=== PATIENT | female | born 1965 | race Caucasian/White ===

== ENCOUNTER 2020-02-09 10:16 | Emergency (ER) | payer OTHER ==
--- OUTSIDE RECORDS SUMMARY | 2020-02-09 10:56 | XMS REPORT | Summary of Care ---
:1965 Author Organization [facility] Address [address] [place] [address] Care Team Providers Name Role Phone Pcp, Does Not Have A Primary Care Provider Reason for Visit Reason Comments Refill Request Encounter Details Date Type Department Care Team Description 11/22/2019 Refill [facility] Yeimi posada, BRYCE Liu Refill Request - [address] [facility] [place] [address] [place] [address] [phone] Allergies No Known Allergiesdocumented as of this encounter (statuses as of 11/24/2019) Medications Medication Sig Dispensed Refills Start Date End Date Status azelastine 137 mcg Use 1 [place] in each 30 mL 0 10/29/2019 Active (0.1 %) nasal nostril 2 (two) sprayIndications: times daily. Use in Sore throat, each nostril as Post-nasal drip, directed Cough documented as of this encounter (statuses as of 11/24/2019) Active Problems Problem Noted Date Sore throat 10/30/2019 Post-nasal drip 10/30/2019 Cough 10/30/2019 Obesity (BMI 30-39.9) 04/10/2018 Family history of early CAD 04/09/2018 documented as of this encounter (statuses as of 11/24/2019) Resolved Problems Problem Noted Date Resolved Date Chest pain 04/09/2018 10/30/2019 documented as of this encounter (statuses as of 11/24/2019) Social History Tobacco Use Types Packs/Day Years Used Date Never Smoker Smokeless Tobacco: Never Used Alcohol Use Drinks/Week oz/Week Comments No Sex Assigned at Date Recorded Not on file COVID-19 Exposure Response Date Recorded In the last month, have you been in contact with No / Unsure 10/29/2019 3:05 PM CDT someone who was confirmed or suspected to have Coronavirus / COVID-19? documented as of this encounter Last Filed Vital Signs Not on filedocumented in this encounter Plan of Treatment Health Maintenance Due Date Last Done Comments Depression Screening 1978 DTaP,Tdap,and Td Vaccines (1 - 1985 Tdap) PAP SMEAR 1987 Breast Cancer Screening (MAMMOGRAM) 2006 COLON CANCER SCREENING ANNUAL 2016 FIT/FOBT COLON CANCER SCREENING FIT DNA 2016 EVERY 3 YEARS COLON CANCER SCREENING 2016 SIGMOIDOSCOPY EVERY 5 YEARS COLONOSCOPY 2016 Colorectal Cancer Screening 2016 Zoster Recombinant Vaccine 2016 (SHINGRIX) (1 of 2) INFLUENZA VACCINE (#1) 2019 PNEUMOCOCCAL 0-64 YEARS COMBINED Aged Out No longer eligible based on SERIES patient's age to complete this topic documented as of this encounter Results Not on filedocumented in this encounter Visit Diagnoses Diagnosis Sore throat Acute pharyngitis Post-nasal drip Postnasal drip Cough documented in this encounter Insurance Payer Benefit Plan / Subscriber ID Effective Dates Phone Addre ss Type Group COMMERCIAL COMMERCIAL [id number] 2019-Salvador HM O/PPO/PO NON-CONTRACT NON-CONTRACT t S GENERIC GENERIC documented as of this encounter
--- OUTSIDE RECORDS SUMMARY | 2020-02-09 10:56 | XMS REPORT | Continuity of Care Document ---
:1965 Author Organization [facility] t Address [address] [place] [address] Care Team Providers Name Role Phone Asked, Pcp Primary Care Physician Unavailable Srikanth CRUZ L Attending Clinician Problems This patient has no known problems. Allergies, Adverse Reactions, Alerts This patient has no known allergies or adverse reactions. Social History Social Habit Start Date Stop Date Quantity Comments Source Sex Assigned At [facility] ethodist Tobacco use and 2018-04-13 2018-04-13 Never used [facility]ist exposure 00:00:00 00:00:00 Medications This patient has no known medications. Procedures This patient has no known procedures. Plan of Care Planned Activity Planned Date Details Comments Source Future Scheduled 2019-11-14 INFLUENZA VACCINE [facility] 00:00:00 [code = INFLUENZA VACCINE] Future Scheduled 2016 BREAST CANCER [facility] Test 00:00:00 SCREENING [code = BREAST CANCER SCREENING] Future Scheduled 2016 COLONOSCOPY SCREENING [facility] Test 00:00:00 [code = COLONOSCOPY SCREENING] Future Scheduled 2016 SHINGLES VACCINES [facility] 00:00:00 (#1) [code = SHINGLES VACCINES (#1)] Future Scheduled 1987 Screening for [facility]ist Test 00:00:00 malignant neoplasm of cervix (procedure) [code = 358157620] Encounters Start End Encounter Admission Attending Care Care Encounter Source Date/Time Date/Time Type Type Clinicians Facility Department ID 2020-01-20 2020-01-21 Office Adum, [facility] [id number] 62 15:06:36 12:37:09 Visit June Wilson [id number] [place] [id number] [place] [id number] critical [facility] hospital 134 [facility] Results This patient has no known results.
--- OUTSIDE RECORDS SUMMARY | 2020-02-09 10:56 | XMS REPORT | Summary of Care ---
:1965 Author Organization [facility] - Health Address [address] [place] [address] Care Team Providers Name Role Phone Pcp, Does Not Have A Primary Care Provider Encounter Details Date Type Department Care Team Description 01/20/2020 Orders Only [facility] Doctor Unassigned, No [address] [facility] [place] [address] [address] [place] [address] Allergies No Known Allergiesdocumented as of this encounter (statuses as of 01/20/2020) Medications Medication Sig Dispensed Refills Start Date End Date Status azelastine 137 mcg Use 1 Grace in each 30 mL 0 10/29/2019 Active (0.1 %) nasal nostril 2 (two) sprayIndications: times daily. Use in Sore throat, each nostril as Post-nasal drip, directed Cough documented as of this encounter (statuses as of 01/20/2020) Active Problems Problem Noted Date Sore throat 10/30/2019 Post-nasal drip 10/30/2019 Cough 10/30/2019 Obesity (BMI 30-39.9) 04/10/2018 Family history of early CAD 04/09/2018 documented as of this encounter (statuses as of 01/20/2020) Resolved Problems Problem Noted Date Resolved Date Chest pain 04/09/2018 10/30/2019 documented as of this encounter (statuses as of 01/20/2020) Social History Tobacco Use Types Packs/Day Years Used Date Never Smoker Smokeless Tobacco: Never Used Alcohol Use Drinks/Week oz/Week Comments No Sex Assigned at Date Recorded Not on file COVID-19 Exposure Response Date Recorded In the last month, have you been in contact with No / Unsure 01/20/2020 2:59 PM CDT someone who was confirmed or suspected to have Coronavirus / COVID-19? documented as of this encounter Last Filed Vital Signs Not on filedocumented in this encounter Plan of Treatment Date Type Specialty Care Team Description 01/20/2020 Office Visit Obstetrics & Gynecology Rachel Duke MD [address] [place] [address] Dr. Vázquez [place], [place] [address] Health Maintenance Due Date Last Done Comments [...] this topic documented as of this encounter Procedures Procedure Name Priority Date/Time Associated Diagnosis Comme nts ASSIGNMENT OF BENEFITS Routine 01/20/2020 3:05 PM CDT documented in this encounter Results Not on filedocumented in this encounter Insurance Payer Benefit Plan / Subscriber ID Effective Dates Phone Addre ss Type Group COMMERCIAL COMMERCIAL [id number] 2019-Presmounika HM O/PPO/PO NON-CONTRACT NON-CONTRACT t S GENERIC GENERIC documented as of this encounter
--- OUTSIDE RECORDS SUMMARY | 2020-02-09 10:56 | XMS REPORT | Clinical Summary ---
:1965 Author Organization [facility] Address [address] [place] [address] Care Team Providers Name Role Phone Asked, No Pcp Primary Care Provider Unavailable Allergies Not on File Medications No known medications Active Problems Not on file Social History Tobacco Use Types Packs/Day Years Used Date Never Assessed Smokeless Tobacco: Never Used Sex Assigned at Date Recorded Not on file Last Filed Vital Signs Not on file Plan of Treatment Health Maintenance Due Date Last Done Comments CERVICAL CANCER SCREENING 1987 BREAST CANCER SCREENING 2016 COLONOSCOPY SCREENING 2016 SHINGLES VACCINES (#1) 2016 INFLUENZA VACCINE 11/14/2019 Results Not on fileafter 02/08/2019 [address] [facility] [place] [phone] Advance Directives For more information, please contact: [phone] Type Date Recorded Patient Clam Sorter Explanati on Advance Directives, Living 04/12/2018 5:46 PM Will and Medical Power of Lab Tester
--- OUTSIDE RECORDS SUMMARY | 2020-02-09 10:57 | XMS REPORT | Summary of Care ---
:1965 Author Organization [facility] [employer] [facility] Address [address] [place] [address] Care Team Providers Name Role Phone Parish Rapp Primary Care Provider Reason for Referral (Routine) Status Reason Specialty Diagnoses / Referred By Referred To Procedures Contact Contact New Request Family Medicine Diagnoses Encounter for well woman exam with routine gynecological exam Elevated BP without diagnosis of hypertension June Duke, Awa g, Procedures CONSULT/REFERRAL FAMILY MEDICINE CONSULT/REFERRAL FAMILY MEDICINE MD Fabricio MD [address] [place] [address] Funes [facility] [place] [phone] Phone: Fax: (Routine) Status Reason Specialty Diagnoses / Referred By Referred To Procedures Contact Contact New Request Diagnoses Encounter for screening colonoscopy June Duke MD Humphrey, [place], Procedures CONSULT/REFERRAL GENERAL SURGERY [address] [place] [address] MD Marshall [facility] [phone] [place], [place] Phone: [phone] Phone: Fax: Radiology Services (Routine) Status Reason Specialty Diagnoses / Referred By Referred To Procedures Contact Contact New Request Diagnostic Diagnoses Encounter for screening mammogram for malignant neoplasm of breast Encounter for well woman exam with routine gynecological exam June Duke, Radiology Procedures BI SCREENING MAMMOGRAM BILATERAL [address] [place] [address] [place] [address] Reason for Visit Reason Comments Well Woman Exam Encounter Details Date Type Department Care Team Description 01/20/2020 Office Visit [facility] AdumJune MD Encounter for well woman exam with alexandria bermudez gynecological exam (Primary Dx); [address] Encounter for screening mamm ogram for malignant neoplasm of breast; [address] [place] [address] DrKenyatta Encounter for screening colonoscopy; Drive, [address] [place] 208 Elevated BP without [place] of [place] [phone] Allergies No Known Allergiesdocumented as of this encounter (statuses as of 01/21/2020) Medications Medication Sig Dispensed Refills Start Date End Date Status azelastine 137 mcg Use 1 [place] in each 30 mL 0 10/29/2019 Active (0.1 %) nasal nostril 2 (two) sprayIndications: times daily. Use in Sore throat, each nostril as Post-nasal drip, directed Cough documented as of this encounter (statuses as of 01/21/2020) Active Problems Problem Noted Date Sore throat 10/30/2019 Post-nasal drip 10/30/2019 Cough 10/30/2019 Obesity (BMI 30-39.9) 04/10/2018 Family history of early CAD 04/09/2018 documented as of this encounter (statuses as of 01/21/2020) Resolved Problems Problem Noted Date Resolved Date Chest pain 04/09/2018 10/30/2019 documented as of this encounter (statuses as of 01/21/2020) Social History Tobacco Use Types Packs/Day Years Used Date Never Smoker Smokeless Tobacco: Never Used Alcohol Use Drinks/Week oz/Week Comments Yes Alcohol Habits Answer Date Recorded How often do you have a drink containing alcohol? Monthly or less 01/20/2020 How many drinks containing alcohol do you have on a Not aske d 01/20/2020 typical day when you are drinking? How often do you have six or more drinks on one Not asked 01/20/2020 occasion? Sex Assigned at Date Recorded Not on file COVID-19 Exposure Response Date Recorded In the last month, have you been in contact with No / Unsure 01/20/2020 2:59 PM CDT someone who was confirmed or suspected to have Coronavirus / COVID-19? documented as of this encounter Last Filed Vital Signs Vital Sign Reading Time Taken Comments Blood Pressure 148/77 01/20/2020 3:35 PM CDT Pulse 66 01/20/2020 3:35 PM CDT Temperature 36.8 C (98.3 F) 01/20/2020 3:35 PM CDT Respiratory Rate 18 01/20/2020 3:35 PM CDT Oxygen Saturation - - Inhaled Oxygen Concentration - - Weight 82.8 kg (182 lb 9.6 oz) 01/20/2020 3:35 PM CDT Height 157.5 cm (5' 2") 01/20/2020 3:35 PM CDT Body Mass Index 33.4 01/20/2020 3:35 PM CDT documented in this encounter Progress Notes June Duke MD - 01/20/2020 3:30 PM CDT Chief complaint: Chief Complaint Patient presents with Well Woman Exam Hope Elizabeth Allen is a 54 year-old who presents for WWE. She has no concerns today but would like to make sure that the cervical polyp that was removed by Brian in 2018 has not recurred. She reports regular cycles, denies intermenstrual or post coital bleeding She is , denies domestic or immediate partner abuse. She declined STI screening. BC is a BTL Last pap smear and mammogram were in 2018, she denies history of abnormal results. She has never hada colonoscopy. Denies family history of breast, ovarian, endometrial or colon cancer Histories OB History Para Term AB Living 8 7 1 7 SAB TAB Ectopic Multiple Live Births 7 # Outcome Date GA Lbr Sidney/2nd Weight Sex Delivery Anes PTL Lv 8 AB 7 Para 6 Para 5 Para 4 Para 3 Para 2 Para 1 Para Obstetric Comments 4 vaginal deliveries 3 C-Sections 1st C -Section was due to Breech One Miscarriage Past Medical History: Diagnosis Date Abnormal uterine bleeding Anemia Breast disorder 2018 Left breast Usg / Negative Cervical polyp Heart murmur Dr Gutiérrez noted Hypertension Urinary incontinence Family History Problem Relation Age of Onset Coronary Heart Disease Mother Stroke Mother Coronary Heart Disease Brother Aneurysm Father Arthritis NoFHx Asthma NoFHx defects NoFHx Breast Cancer NoFHx Colon Cancer NoFHx Ovarian Cancer NoFHx Uterine Cancer NoFHx Cancer NoFHx Depression NoFHx Diabetes NoFHx Genetic NoFHx Heart NoFHx High cholesterol NoFHx Hypertension NoFHx Mental retardation NoFHx Neurological NoFHx Osteoporosis NoFHx Psychiatry NoFHx Other - see comments NoFHx Family Status Relation Name Status Mo Bro (Not Specified) Fa NoFHx (Not Specified) Past Surgical History: Procedure Laterality Date SECTION x'3 TUBAL LIGATION x's 2 Social History Socioeconomic History Marital status: Spouse name: Not on file Number of children: Not on file Years of education: Not on file Highest education level: Not on file Occupational History Not on file Social Needs Financial resource strain: Not on file Food insecurity Worry: Not on file Inability: Not on file Transportation needs Medical: Not on file Non-medical: Not on file Tobacco Use Smoking status: Never Smoker Smokeless tobacco: Never Used Substance and Sexual Activity Alcohol use: Yes Frequency: Monthly or less Drug use: No Sexual activity: Yes Partners: Male control/protection: Surgical Comment: BTL Lifestyle Physical activity Days per week: Not on file Minutes per session: Not on file Stress: Not on file Relationships Social connections Talks on phone: Not on file Gets together: Not on file Attends yarsani service: Not on file Active member of club or organization: Not on file Attends meetings of clubs or organizations: Not on file Relationship status: Not on file Intimate partner violence Fear of current or ex partner: Not on file Emotionally abused: Not on file Physically abused: Not on file Forced sexual activity: Not on file Other Topics Concern Not on file Social History Narrative Lives at home with Denied domestic or physical violence w/i the home Confucianist Preference: Religion Social History Substance and Sexual Activity Sexual Activity Yes Partners: Male control/protection: Surgical Comment: BTL Labs No new labs Radiology No new radiology. Allergies Hope has No Known Allergies. Medications Hope has a current medication list which includes the following prescription(s): azelastine. Review of Systems Constitutional: Negative. HENT: Negative. Eyes: Negative. Respiratory: Negative. Breasts: Negative. Cardiovascular: Negative. Gastrointestinal: Negative. Genitourinary: Negative. Musculoskeletal: Negative. Skin: Negative. Neurological: Negative. Psychiatric/Behavioral: Negative. Endocrine: Endocrine negative BP (!) 148/77 (BP Location: Left arm, Patient Position: Sitting, BP CUFF SIZE: Adult Medium) | Pulse 66 | Temp 36.8 C (98.3 F) (Oral) | Resp 18 | Ht 5' 2" (1.575 m) | Wt 182 lb 9.6 oz (82.8 kg) | LMP 12/24/2019 (Approximate) | BMI 33.40 kg/m Pregravid BMI: Could not be calculated Physical Exam Vitals reviewed. Constitutional: She is oriented to person, place, and time. She appears well- developed and well-groomed. Neck: No tenderness and no mass. No thyroid nodules palpated. No neck adenopathy. Cardiovascular: Regular rate and rhythm. No murmur auscultated. No peripheral edema present. Pulmonary/Chest: Breath sounds clear to auscultation. Normal inspiratory effort. Abdominal: Abdomen is soft. No mass palpated. No tenderness present. There is no rigidity and no guarding. Neuro/Psychiatric: She has a normal mood and affect. She is oriented to person, place, and time. Skin: Skin normal. Lymphadenopathy: No neck adenopathy present. No axillary adenopathy present. No inguinal adenopathy present. Breast: Right breast exhibits no mass, no nipple discharge and no tenderness. Left breast exhibits no mass, no nipple discharge and no tenderness. External genitalia: Normal external genitalia appropriate for age. Vagina:No lesion inspected. Normal support. No abnormal vaginal discharge found. No lesions in the vagina. Cervix: No lesion. No tenderness and no discharge present. Uterus: Uterus is normal size, normal contour, normal position and non-tender. Adnexa: Right adnexa without tenderness, ovary enlargement or mass. Left adnexa without tenderness, ovary enlargement or mass. Assessment/Plan Encounter for well woman exam with routine gynecological exam (primary encounter diagnosis) Comment: Reviewed and encouraged good nutrition, regular exercise, use of sunscreen, awareness of her breasts, routine annuals and mammograms. Also age appropriate vaccinations and screening labs were discussed. Colonoscopy after age of 50 and DEXA scan 66 years of age. Bone health-adequate Vit D and calcium with weight bearing exercise. Expectation and changes during perimenopausal stage were discussed and she was encouraged to call with any concerns. Plan: BI SCREENING MAMMOGRAM BILATERAL, PAP Smear-Liquid Based, HIGH RISK HPV- THIN PREP, PAP Smear-Liquid Based, HIGH RISK HPV-THIN PREP Encounter for screening mammogram for malignant neoplasm of breast Plan: BI SCREENING MAMMOGRAM BILATERAL Encounter for screening colonoscopy Comment:Reviewed the options for colon cancer screening. sigmoidoscopy every 5 years, colonoscopy (gold standard) every 10 years, FOBT yearly, stool DNA. Patient accepted colonoscopy and referral generated Plan: CONSULT/REFERRAL GENERAL SURGERY Elevated BP without diagnosis of hypertension Patient reports that she is aware of her elevated BP- it is intermittent and she keeps an eye on it but hasn't been formally diagnosed with hypertension. She hasn't seen her PCP in years and would to establish care with one here. Her see Dr Norris. Referral generated. Stressed and encouraged lifestyle modification, - change in diet, with regular exercise This visit did not involve counseling and coordination that comprised more than 50% of the visit time. June Duke MD documented in this encounter Plan of Treatment Date Type Specialty Care Team Description 03/09/2020 Office Visit Family Medicine Fabricio Norris MD [address] [place] [address] Dr Funes [address] [place] [address] [phone] 01/25/2021 Office Visit Obstetrics & Gynecology Rachel Duke MD [address] [place] [address] Dr. Funes [address] [place] [phone] Name Type Priority Associated Diagnoses Date/Ti me HIGH RISK HPV-THIN LAB Routine Encounter for well wom an 01/20/2020 4:49 PM CDT PREP exam with routine gynecological exam LAB ONLY PAP LAB Routine Encounter for well woman 10/2019 4:49 PM CDT SMEAR-LIQUID BASED exam with routine gynecological exam Name Type Priority Associated Diagnoses Order S chedule BI SCREENING MAMMOGRAM IMAGING Routine Encounter for scre ening Expected: BILATERAL mammogram for malignant 10/2019, Expires: neoplasm of [address] 03/21/2021 Encounter for well woman exam with routine gynecological exam HIGH RISK HPV-THIN LAB Routine Encounter for well wom an Expected: PREP exam with routine 01/20/2020 , Expires: gynecological exam 10/07/202 1 Health Maintenance Due Date Last Done Comments [...] Name Priority Date/Time Associated Diagnosis Comme nts PAP SMEAR-LIQUID Routine 01/20/2020 4:49 PM Encounter for wel l woman BASED-CP CDT exam with routine gynecological exam documented in this encounter Results PAP Smear-Liquid Based (01/20/2020 4:49 PM CDT) Specimen Swab - CERVIX Performing Organization Address City/State/Zipcode Phone Number [facility] CLIA: [id number] [place] [address] [place] [address] documented in this encounter Visit Diagnoses Diagnosis Encounter for well woman exam with alexandria bermudez gynecological exam - Primary Encounter for screening mammogram for ma lignant neoplasm of breast Other screening mammogram Encounter for screening colonoscopy Special screening for malignant neoplasm s, colon Elevated BP without diagnosis of hyperte nsion documented in this encounter Insurance Payer Benefit Plan / Subscriber ID Effective Dates Phone Addre ss Type Group COMMERCIAL COMMERCIAL [id number] 2019-Presen O/PPO/PO NON-CONTRACT NON-CONTRACT t S GENERIC GENERIC documented as of this encounter
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
--- NOTE | 2020-02-09 11:57 | EDPHYS ---
Physician Documentation [facility] Name: Pepper Allen Age: 54 yrs Sex: Female : 1965 Arrival Date: 02/09/2020 Time: 10:19 Bed 15 Private MD: LORENZO Physician Ramesh Del Castillo HPI: 02/08 11:07 This 54 yrs old Female presents to ER via Ambulatory with complaints of Flu kb Symptoms. 11:07 The patient or guardian reports flu symptoms, low-grade fever, myalgias. Onset: The kb symptoms/episode began/occurred last night. Severity of symptoms: At their worst the symptoms were mild, moderate, in the emergency department the symptoms are unchanged. Modifying factors: The symptoms are alleviated by nothing, the symptoms are aggravated by nothing. Associated signs and symptoms: The patient has no apparent associated signs or symptoms. The patient has not experienced similar symptoms in the past, but family has similar symptoms. The patient has not recently seen a physician. Pt reports body aches, fever, malaise and headache that started last night. States she has been around her daughter a lot that was recently diagnosed with mono. States she drank after her daughter. . Historical: - Allergies: 10:36 No Known Allergies; iw - Home Meds: 10:36 None [Active]; iw - PMHx: 10:36 None; iw - PSHx: 10:36 ; iw - Immunization history:: Adult Immunizations not up to date. - Social history:: Smoking status: Patient denies any tobacco usage or history of. ROS: 11:07 Cardiovascular: Negative for chest pain, palpitations, and edema, Respiratory: Negative kb for shortness of breath, cough, wheezing, and pleuritic chest pain, Abdomen/GI: Negative for abdominal pain, nausea, vomiting, diarrhea, and constipation, MS/Extremity: Negative for injury and deformity, Skin: Negative for injury, rash, and discoloration. 11:07 Constitutional: Positive for body aches, fever, malaise. 11:07 Neuro: Positive for headache. Exam: 11:07 Constitutional: This is a well developed, well nourished patient who is awake, alert, kb and in no acute distress. Head/Face: Normocephalic, atraumatic. Chest/axilla: Normal chest wall appearance and motion. Nontender with no deformity. No lesions are appreciated. Cardiovascular: Regular rate and rhythm with a normal S1 and S2. No gallops, murmurs, or rubs. Normal PMI, no JVD. No pulse deficits. Respiratory: Lungs have equal breath sounds bilaterally, clear to auscultation and percussion. No rales, rhonchi or wheezes noted. No increased work of breathing, no retractions or nasal flaring. Abdomen/GI: Soft, non-tender, with normal bowel sounds. No distension or tympany. No guarding or rebound. No evidence of tenderness throughout. Skin: Warm, dry with normal turgor. Normal color with no rashes, no lesions, and no evidence of cellulitis. MS/ Extremity: Pulses equal, no cyanosis. Neurovascular intact. Full, normal range of motion. Neuro: Awake and alert, GCS 15, oriented to person, place, time, and situation. Cranial nerves II-XII grossly intact. Motor strength 5/5 in all extremities. Sensory grossly intact. Cerebellar exam normal. Normal gait. Vital Signs: 10:35 BP 137 / 75; Pulse 71; Resp 16; Temp 98.8; Pulse Ox 99% on R/A; Weight 81.65 kg; Height iw 5 ft. 2 in. (157.48 cm); 12:00 BP 141 / 69; Pulse 75; Resp 17; Temp 98.5; Pulse Ox 99% ; bp 10:35 Body Mass Index 32.92 (81.65 kg, 157.48 cm) iw MDM: 10:37 Patient medically screened. kb 11:06 Data reviewed: vital signs, nurses notes. Data interpreted: Pulse oximetry: on room air kb is 99 %. Interpretation: normal. Counseling: I had a detailed discussion with the patient and/or guardian regarding: the historical points, exam findings, and any diagnostic results supporting the discharge/admit diagnosis, lab results, the need for outpatient follow up, a family practitioner, to return to the emergency department if symptoms worsen or persist or if there are any questions or concerns that arise at home. 11:59 ED course: Lab says it will be another 30 minutes before flu test is resulted. Pt kb informed. I will call if test is positive. 02/08 10:38 Order name: Power Screen Profile kb 02/08 10:43 Order name: Flu kb 02/08 11:34 Order name: Johnnie Olivarez; Complete Time: 11:34 EDMS Administered Medications: No medications were administered Disposition: 02/09 11:49 Co-signature as Attending Physician, Ramesh Del Castillo MD I agree with the assessment and nicolle plan of care. Disposition: 02/09/20 11:56 Discharged to Home. Impression: Infectious mononucleosis. - Condition is Stable. - Discharge Instructions: Infectious Mononucleosis, [id number]. - Work release form, Medication Reconciliation Form, Thank You Letter, Antibiotic Education, Prescription Opioid Use form. - Follow up: Emergency Department; When: As needed; Reason: Worsening of condition. Follow up: Private Physician; When: 2 - 3 days; Reason: Recheck today's complaints, Continuance of care, Re-evaluation by your physician. Signatures: Dispatcher [employer] EDMS Jnig Sheffield, DOG BATHER-C DOG BATHER-Ramesh Fernandez MD MD cha Williams, Irene, Jersey Knight RN, RN RN bp Corrections: (The following items were deleted from the chart) 02/08 12:11 11:56 02/09/2020 11:56 Discharged to Home. Impression: Infectious mononucleosis. bp Condition is Stable. Discharge Instructions: Infectious Mononucleosis, [id number]. Forms are Medication Reconciliation Form, Thank You Letter, Antibiotic Education, Prescription Opioid Use. Follow up: Emergency Department; When: As needed; Reason: Worsening of condition. Follow up: Private Physician; When: 2 - 3 days; Reason: Recheck today's complaints, Continuance of care, Re-evaluation by your physician. kb
--- NOTE | 2020-02-09 11:57 | ER ---
Nurse's Notes [facility] Name: Pepper Allen Age: 54 yrs Sex: Female : 1965 Arrival Date: 02/09/2020 Time: 10:19 Bed 15 Private MD: Diagnosis: Infectious mononucleosis Presentation: 02/08 10:35 Chief complaint: Patient states: headache, bodyaches, fever last night, daughter iw diagnosed with mono recently, daughter was covid negative. Coronavirus screen: fever, headache, muscle pain. Ebola Screen: Patient negative for fever greater than or equal to 101.5 degrees Fahrenheit, and additional compatible Ebola Virus Disease symptoms Patient denies exposure to infectious person. Patient denies travel to an Ebola-affected area in the 21 days before illness onset. No symptoms or risks identified at this time. Initial Sepsis Screen: Does the patient meet any 2 criteria? No. Patient's initial sepsis screen is negative. Does the patient have a suspected source of infection? No. Patient's initial sepsis screen is negative. Risk Assessment: Do you want to hurt yourself or someone else? Patient reports no desire to harm self or others. Onset of symptoms was February 08, 2020. 10:35 Method Of Arrival: Ambulatory iw 10:35 Acuity: MARLENE 3 iw Triage Assessment: 10:40 General: Appears in no apparent distress. uncomfortable, Behavior is cooperative, bp appropriate for age, anxious. Pain: Complains of pain in SORE THROAT. EENT: Throat is reddened. Neuro: No deficits noted. Cardiovascular: No deficits noted. Respiratory: No deficits noted. GI: No signs and/or symptoms were reported involving the gastrointestinal system. : No signs and/or symptoms were reported regarding the genitourinary system. Derm: No deficits noted. Musculoskeletal: No deficits noted. Historical: - Allergies: 10:36 No Known Allergies; iw - Home Meds: 10:36 None [Active]; iw - PMHx: 10:36 None; iw - PSHx: 10:36 ; iw - Immunization history:: Adult Immunizations not up to date. - Social history:: Smoking status: Patient denies any tobacco usage or history of. Screenin:43 Abuse screen: Denies threats or abuse. Denies injuries from another. Nutritional bp screening: No deficits noted. Tuberculosis screening: No symptoms or risk factors identified. Fall Risk None identified. Assessment: 10:40 General: SEE TRIAGE NOTE. bp 12:00 Reassessment: PT D/C HOME AMBULATORY WITH FAMILY, DX WITH MONO. bp Vital Signs: 10:35 BP 137 / 75; Pulse 71; Resp 16; Temp 98.8; Pulse Ox 99% on R/A; Weight 81.65 kg; Height iw 5 ft. 2 in. (157.48 cm); 12:00 BP 141 / 69; Pulse 75; Resp 17; Temp 98.5; Pulse Ox 99% ; bp 10:35 Body Mass Index 32.92 (81.65 kg, 157.48 cm) iw ED Course: 10:19 Patient arrived in ED. ag5 10:21 Jing Sheffield FNP-C [facility] kb 10:21 Ramesh Del Castillo MD is Attending Physician. kb 10:36 Triage completed. iw 10:36 Arm band placed on. iw 10:41 Jersey Esqueda, RN is Primary Nurse. bp 10:43 Patient has correct armband on for positive identification. Bed in low position. Call bp light in reach. Side rails up X2. Adult w/ patient. 12:11 No provider procedures requiring assistance completed. Patient did not have IV access bp during this emergency room visit. Administered Medications: No medications were administered Outcome: 11:56 Discharge ordered by MD. kb 12:11 Discharged to home ambulatory, with family. bp 12:11 Condition: stable 12:11 Discharge instructions given to patient, Instructed on discharge instructions, follow up and referral plans. Demonstrated understanding of instructions, follow-up care. 12:11 Patient left the ED. bp Signatures: Jing Sheffield FNP-C FNP-Elidia Cardenas, RN RN iw Jersey Esqueda, RN RN Wing Alba ag5 Corrections: (The following items were deleted from the chart) 10:40 10:35 Chief complaint: Patient states: headache, bodyaches, fever last night, daughter iw diagnosed with mono recently iw
[2020-02-09 12:56] VITALS: O2SAT 99
[2020-02-09 12:58] VITALS: BP 141/69; TEMP 98.5
== END 2020-02-09 12:11 | disposition home or self-care (01) ==
LOC: ER 10:16
DX: B27.90 Infectious mononucleosis, unspecified without complication (principal)
CPT/HCPCS: 36415; 86308; 87804; 99281

== ENCOUNTER 2022-10-30 04:18 | Emergency (ER) | payer OTHER ==
--- OUTSIDE RECORDS SUMMARY | 2022-10-30 04:24 | XMS REPORT | Continuity of Care Document ---
:1965 Author Organization [facility] t Address [address] [place] [place] [address] Care Team Providers Name Role Phone COLTON HARP Primary Care Physician Unavailable JUNE DUKE Attending Clinician Unavailable June Duke MD Attending Clinician Doctor Unassigned, [place] Attending Clinician Unavailable MYLES LANDA Attending Clinician Unavailable Myles Landa MD Attending Clinician Rupal Hercules MD Attending Clinician COLTON MEZA Attending Clinician Unavailable Colton Meza MD Attending Clinician RENAY WEISS Attending Clinician Unavailable Renay Boyce Attending Clinician Karissa Terrell MD Attending Clinician KARISSA TERRELL Attending Clinician Unavailable JUNE DUKE Attending Clinician Unavailable RUPAL HERCULES Attending Clinician Unavailable RADIOLOGY Attending Clinician Unavailable Radiology Attending Clinician Unavailable Provider, [facility] Attending Clinician Unavailable Meenu Glass Attending Clinician Ebenezer Norris MD Attending Clinician 2, [facility] Attending Clinician Unavailable Brooks José DO Attending Clinician EBENEZER NORRIS Attending Clinician Unavailable Lab, Pcp Covid Attending Clinician Unavailable Pob1, Acute [facility] Attending Clinician Unavailable Carmen Milner Attending Clinician CARMEN PADILLA Attending Clinician Unavailable MYLES LANDA Admitting Clinician Unavailable Myles Landa MD Admitting Clinician COLTON MEZA Admitting Clinician Unavailable RENAY WEISS Admitting Clinician Unavailable ADUMJUNE Admitting Clinician Unavailable ADUM, JUNE Moraes Admitting Clinician Unavailable COLTON HARP Admitting Clinician Unavailable Payers Payer Name Policy Type Policy Number Effective Date Expiration Date S rehana [employer]IG[employer] GENERIC [id number] 2020 00:00:00 CIG[employer] 2 [id number] 2022 00:00:00 COMMERCIAL [id number] 2019 NON-CONTRACT 00:00:00 GENERIC Problems Condition Condition Condition Status Onset Resolution Last Treating Co mments Source Name Details Category Date Date Treatment Clinician Date Pain of Pain of Disease Active Overview: Univ ers upper upper 9-21 Formattin ity of abdomen abdomen 00:00: g of this [place] 00 note Medical might be Branch different from the original. Added automatic ally from request for surgery [id number] Essential Essential Disease Active 2019-04 Uni vers hypertensi hypertensi 1-18 it y of on on 00:00: [place] 00 Medical Branch Class 1 Class 1 Disease Active 2019-04 Univers obesity obesity 1-18 ity of with with 00:00: [place] serious serious 00 Medical comorbidit comorbidit Br anch y and body y and body mass index mass index (BMI) of (BMI) of 33.0 to 33.0 to 33.9 in 33.9 in adult, adult, unspecifie unspecifie d obesity d obesity type type Need for Need for Disease Active 2019-04 Unive rs Tdap Tdap 1-18 [place] Encounter Encounter Disease Active 2019-04 Uni vers for for 1-18 ity of medical medical 00:00: [place] examinatio examinatio 00 Me dical n to n to Branch establish establish care care Other Other Disease Active 2019-04 Univers infectious infectious 1-18 it y of mononucleo [place]o [place] Medical without without Branch complicati complicati on on Sore Sore Disease Active 2020- Univers throat throat 7-17 ity of 00:00: [place] [address] Medical Branch Post-nasal Post-nasal Disease Active 2019- U nivers drip drip 7-17 ity of 00:00: [place] [address] Medical Branch Cough Cough Disease Active 2020- Univers 7-17 ity of 00:00: [place] [address] Medical Branch Obesity Obesity Disease Active 2017-04 Univers (BMI (BMI 2-27 ity of 30-39.9) 30-39.9) 00:00: [place] [address] Medical Branch Family Family Disease Active 2017-04 Univers history of history of 2-26 it y of early CAD early CAD 00:00: [address] Allergies, Adverse Reactions, Alerts Allergy Allergy Status Severity Reaction(s) Onset Inactive Treating Comm ents Source Name Type Date Date Clinician NO KNOWN Drug Active Univers ALLERGIE Class ity of S [facility] Social History Social Habit Start Date Stop Date Quantity Comments Source Gender identity [facility] Sexual orientation [facility] Exposure to 2022-07-03 2022-07-13 Not sure [place] of SARS-CoV-2 (event) 00:00:00 07:41:00 [facility] Alcohol intake 2022-07-13 2022-07-13 Current drinker Unive rsity of 00:00:00 00:00:00 of alcohol [facility] (finding) [place] Alcohol Comment 2022-02-05 2022-02-05 occasional Universit y of 00:00:00 00:00:00 [facility] Tobacco use and 2021-12-28 2021-12-28 Smokeless tobacco Un iversity of exposure 00:00:00 00:00:00 non-user [facility] History SDOH 2020-01-20 2020-01-20 2 University o f Alcohol Frequency 00:00:00 00:00:00 [facility] edical Branch History SDOH 2020-01-20 2020-01-20 99 University o f Alcohol Std Drinks 00:00:00 00:00:00 [facility] History SDOH 2020-01-20 2020-01-20 99 University o f Alcohol Binge 00:00:00 00:00:00 [place] Medic al Branch History of Social 2018-12-04 2018-12-[address] function 00:00:00 00:00:00 Hospital Sex Assigned At [birth year] [facility] 00:00:00 00:[facility]:00 [facility] Smoking Status Start Date Stop Date Source Never smoked tobacco [facility] Tobacco smoking consumption Meth [facility] unknown Medications Ordered Filled Start Stop Current Ordering Indication Dosage Frequency Signature Comments Components Source Medication Medication Date Date Medication? Clinician (SIG) Name Name aspirin 81 Yes 81mg Take 1 Unive rs mg chewable 3-31 tablet by ity of tablet 08:22: mouth in [place] 23 the Medical morning. Branch aspirin 81 Yes 81mg Take 1 Unive rs mg chewable 3-31 tablet by ity of tablet 08:22: mouth in [place] [address] the Medical morning. Branch lactated 2021-04 Yes 1000mL at 100 Unive rs ringers IV 1-11 mL/hr, ity of infusion 18:15: 1[place]000 [place] 1[place]000 [place] 00 IV Medical Infusion, Branch CONTINUOUS , Starting on Sat02/23/22 at 1215, Until Discontinu ed, Routine, PACU lactated 2021-04- No 1000mL at 100 Univ ers ringers IV 1-11 11-11 mL/hr, ity of infusion 18:15: 22:21 1,000 mL, [place] 1,000 mL 00 :27 IV Medical Infusion, Branch CONTINUOUS , Starting on Sat02/23/22 at 1215, Until Sat02/23/22 at 1621, Routine, PACU HYDROmorphO 2021-04 Yes .2mg 0.2 mg, Uni vers ne 1-11 Slow IV ity of (DILAUDID) 18:04: Push, [place] injection 10 Q5MIN PRN, Medi ankit 0.2 mg 10 doses, Branch Starting on Sat02/23/22 at 1204, Until Discontinu ed, Routine, Pain (scale 7-10), PACU
Us e approved by (Faculty): PACU USE -ANESTHESI A SERVICE-HY DROMORPHON E INJECTIONS FENTanyl PF 2021-04 Yes 25ug 25 mcg, Uni vers (SUBLIMAZE 1-11 Slow IV ity of (PF)) 18:04: Push, [place] injection 10 Q5MIN PRN, Medi ankit 25 mcg 4 doses, Branch Starting on Sat02/23/22 at 1204, Until Discontinu ed, Routine, Pain (scale 4-6), PACU HYDROmorphO 2021-04- No .2mg 0.2 mg, Un nataly ne 04-25 Slow IV ity of (DILAUDID) 18:04: 22:21 Push, [place] injection 10 :27 Q5MIN PRN, Medi ankit 0.2 mg 10 doses, Branch Starting on Sat02/23/22 at 1204, Until Sat02/23/22 at 1621, Routine, Pain (scale 7-10), PACU
Us e approved by (Faculty): PACU USE -ANESTHESI A SERVICE-HY DROMORPHON E INJECTIONS FENTanyl PF 2021-04- No 25ug 25 mcg, Un nataly (SUBLIMAZE 04-25 Slow IV ity o f (PF)) 18:04: 22:21 Push, [place] injection 10 :27 Q5MIN PRN, Medi ankit 25 mcg 4 doses, Branch Starting on Sat02/23/22 at 1204, Until Sat02/23/22 at 1621, Routine, Pain (scale 4-6), PACU ondansetron 2021-04- No 4mg 4 mg, Slow Univers (ZOFRAN 04-25 IV Push, ity of (PF)) 18:04: 18:14 PRN, 1 [place] injection 4 10 :00 dose, Medical mg Starting Branch on Sat02/23/22 at 1204, Until Discontinu ed, Routine, Nausea and Vomiting (N/V), PACU ondansetron 2021-04- No 4mg 4 mg, Slow Univers (ZOFRAN 04-25 IV Push, ity of (PF)) 18:04: 18:14 PRN, 1 [place] injection 4 10 :00 dose, Medical mg Starting Branch on Sat02/23/22 at 1204, Until Discontinu ed, Routine, Nausea and Vomiting (N/V), PACU iohexoL 2021-04 Yes PRN, Univers (OMNIPAQUE 04-25 Starting ity o f 300-50 mL)) 14:44: on Fri [place] injection 00 02/23/22 Medica l at 0844, Branch Until Discontinu ed, Routine, Intra-op sodium 2021-04 Yes PRN, Univers chloride 04-25 Starting ity of 0.9 % 14:44: on Fri [place] irrigation 00 02/23/22 Medic al solution at 0844, Branch Until Discontinu ed, Intra-op iohexoL 2021-04- No PRN, Univers (OMNIPAQUE 04-25 Starting ity of 300-50 mL)) 14:44: 22:21 on Sat [place] injection 00 :27 02/23/22 Medica l at 0844, Branch Until Sat02/23/22 at 1621, Routine, Intra-op sodium 2021-04- No PRN, Univers chloride 04-25 Starting ity of 0.9 % 14:44: 22:21 on Sat [place] irrigation 00 :27 02/23/22 Medic al solution at 0844, Branch Until Sat02/23/22 at 1621, Intra-op bupivacaine 2021-04 Yes PRN, Univer s -epinephrin 04-25 Starting ity of e-pf 14:43: on Sat [place] (SENSORCAIN 00 02/23/22 Medi ankit E at 0843, Branch W/EPINEPHRI Intra-op NE) 0.25 %-1:200,000 30 mL, lidocaine 1% (PF) (XYLOCAINE) 30 mL bupivacaine 2021-04- No PRN, Unive rs -epinephrin 04-25 Starting ity of e-pf 14:43: 22:21 on Sat [place] (SENSORCAIN 00 :27 02/23/22 Medi ankit E at 0843, Branch W/EPINEPHRI Intra-op NE) 0.25 %-1:200,000 30 mL, lidocaine 1% (PF) (XYLOCAINE) 30 mL aspirin 81 2021-04 Yes 81mg Take 81 mg U nivers mg chewable -11 by mouth ity of tablet 14:21: in the [place] morning. Medical Branch aspirin 81 2021-04 Yes 81mg Take 81 mg U nivers mg chewable -11 by mouth ity of tablet 14:21: in the [place] 25 morning. Medical Branch aspirin 81 2021-04 Yes 81mg Take 81 mg U nivers mg chewable 1-11 by mouth ity of tablet 14:21: in the [place] [address] morning. Medical Branch aspirin 81 2021-04 Yes 81mg Take 81 mg U nivers mg chewable 1-11 by mouth ity of tablet 14:21: in the [place] [address] morning. Medical Branch aspirin 81 2021-04 Yes 81mg Take 81 mg U nivers mg chewable 1-11 by mouth ity of tablet 14:21: in the [place] [address] morning. Medical Branch aspirin 81 2021-04 Yes 81mg Take 81 mg U nivers mg chewable 1-11 by mouth ity of tablet 14:21: in the [place] [address] morning. [facility] aspirin 81 2021-04 Yes 81mg Take 81 mg U nivers mg chewable 1-11 by mouth ity of tablet 14:21: in the [place] [address] morning. Medical Branch lactated 2021-04- No 1000mL at 42 Unive rs ringers IV 1-11 11-11 mL/hr, ity of infusion 14:15: 14:15 1,000 mL, [place] 1,000 mL 00 :00 IV Medical Infusion, Branch ONCE, 1 dose, On Sat02/23/22 at 0815, Routine, DSU Pre-op lactated 2021-04- No 1000mL at 42 Unive rs ringers IV 1-11 11-11 mL/hr, ity of infusion 14:15: 14:15 1,000 mL, [place] 1,000 mL 00 :00 IV Medical Infusion, Branch ONCE, 1 dose, On Sat02/23/22 at 0815, Routine, DSU Pre-op ibuprofen 2021-04 Yes [id number] 800mg Take 1 U nivers 800 mg 1-11 tablet by ity of tablet 00:00: mouth [place] 00 every 6 Medical (six) Branch hours as needed for Alternate with [place] for pain scale 4-6. ibuprofen 2021-04 Yes [id number] 800mg Take 1 U nivers 800 mg 1-11 tablet by ity of tablet 00:00: mouth [place] 00 every 6 Medical (six) Branch hours as needed for Alternate with [place] for pain scale 4-6. ibuprofen 2021-04 Yes [id number] 800mg Take 1 U nivers 800 mg 1-11 tablet by ity of tablet 00:00: mouth [place] 00 every 6 Medical (six) Branch hours as needed for Alternate with [place] for pain scale 4-6. ibuprofen 2021-04 Yes [id number] 800mg Take 1 U nivers 800 mg 1-11 tablet by ity of tablet 00:00: mouth [place] 00 every 6 Medical (six) Branch hours as needed for Alternate with [place] for pain scale 4-6. ibuprofen 2021-04 Yes [id number] 800mg Take 1 U nivers 800 mg 1-11 tablet by ity of tablet 00:00: mouth [place] 00 every 6 Medical (six) Branch hours as needed for Alternate with [place] for pain scale 4-6. ibuprofen 2021-04 Yes [id number] 800mg Take 1 U nivers 800 mg 1-11 tablet by ity of tablet 00:00: mouth [place] 00 every 6 Medical (six) Branch hours as needed for Alternate with [place] for pain scale 4-6. ibuprofen 2021-04 Yes [id number] 800mg Take 1 U nivers 800 mg 1-11 tablet by ity of tablet 00:00: mouth [place] 00 every 6 Medical (six) Branch hours as needed for Alternate with [place] for pain scale 4-6. ibuprofen 2021-04 Yes [id number] 800mg Take 1 U nivers 800 mg 1-11 tablet by ity of tablet 00:00: mouth [place] 00 every 6 Medical (six) Branch hours as needed for Alternate with [place] for pain scale 4-6. ibuprofen 2021-04 Yes [id number] 800mg Take 1 U nivers 800 mg 1-11 tablet by ity of tablet 00:00: mouth [place] 00 every 6 Medical (six) Branch hours as needed for Alternate with [place] for pain scale 4-6. HYDROcodone 2021-04- No [id number] 1{tbl} Take 1 U nivers -acetaminop 1-11 11-19 tablet by it y of hen (NORCO) 00:00: 05:59 mouth [place] 5-325 mg 00 :00 every 6 Medical tablet (six) Branch hours as needed for Pain (scale 7-10) for up to 7 days. Indication s: acute pain HYDROcodone 2021-04- No [id number] 1{tbl} Take 1 U nivers -acetaminop 1-11 11-19 tablet by it y of hen (NORCO) 00:00: 05:59 mouth [place] 5-325 mg 00 :00 every 6 Medical tablet (six) Branch hours as needed for Pain (scale 7-10) for up to 7 days. Indication s: acute pain water for 2021-04- No PRN, Univers irrigation 0-24 10-24 Starting ity of irrigation 18:03: 18:30 on Mon [place] solution 00 :00 02/05/22 Medical at 1303, Branch Until Sat02/05/22 at 1330, Routine, Intra-op simethicone 2021-04- No PRN, Unive rs (GAS RELIEF 0-24 10-24 Starting ity of (SIMETHICON 18:03: 18:30 on Mon [place] E)) 40 00 :00 02/05/22 Medical mg/0.6 mL at 1303, Branch drops Until Sat02/05/22 at 1330, Routine, Intra-op lactated 2021-04- No 1000mL at 42 Unive rs ringers IV 0-24 10-24 mL/hr, ity of infusion 16:15: 16:13 1,000 mL, [place] 1,000 mL 00 :00 IV Medical Infusion, Branch ONCE, 1 dose, On Sat02/05/22 at 1115, Routine, DSU Pre-op lactated 2021-04- No 1000mL at 42 Unive rs ringers IV 0-24 10-24 mL/hr, ity of infusion 16:15: 16:13 1,000 mL, [place] 1,000 mL 00 :00 IV Medical Infusion, Branch ONCE, 1 dose, On Sat02/05/22 at 1115, Routine, DSU Pre-op aspirin 2021-04 Yes 81mg Take 81 mg U nivers mg chewable 0-24 by mouth ity of tablet 14:21: in the [place] morning. Medical Branch aspirin 81 2021-04 Yes 81mg Take 81 mg U nivers mg chewable 0-24 by mouth ity of tablet 14:21: in the [place] morning. Medical Branch aspirin 2021-04 Yes 81mg Take 81 mg U nivers mg chewable 0-24 by mouth ity of tablet 14:21: in the [place] morning. [facility] aspirin 2021-04 Yes 81mg Take 81 mg U nivers mg chewable 0-24 by mouth ity of tablet 14:21: in the [place] morning. Medical Branch aspirin 81 2021-04 Yes 81mg Take 81 mg U nivers mg chewable 0-24 by mouth ity of tablet 14:21: in the [place] morning. Medical Branch aspirin 81 2021- Yes 81mg Take 81 mg U nivers mg chewable 0-24 by mouth ity of tablet 14:21: in the [place] morning. Medical Branch aspirin 81 2021-04 Yes 81mg Take 81 mg U nivers mg chewable 0-24 by mouth ity of tablet 14:21: in the [place] morning. Medical Branch aspirin 81 2021-04 Yes 81mg Take 81 mg U nivers mg chewable 0-24 by mouth ity of tablet 14:21: in the [place] morning. Medical Branch aspirin 81 2021-04 Yes 81mg Take 81 mg U nivers mg chewable 0-24 by mouth ity of tablet 14:21: in the [place] morning. Medical Branch FAMOTIDINE 2021-04 Yes [id number] TAKE 1 Univers 40 mg 0-20 TABLET BY ity of tablet 00:00: [facility] EVERYDAY Medical AT BEDTIME Branch FAMOTIDINE 2021- Yes [id number] TAKE 1 Univers 40 mg 0-20 TABLET BY ity of tablet 00:00: [facility] EVERYDAY Medical AT BEDTIME Branch FAMOTIDINE 2021- Yes [id number] TAKE 1 Univers 40 mg 0-20 TABLET BY ity of tablet 00:00: [facility] EVERYDAY Medical AT BEDTIME Branch FAMOTIDINE 2021- Yes [id number] TAKE 1 Univers 40 mg 0-20 TABLET BY ity of tablet 00:00: [facility] EVERYDAY Medical AT BEDTIME Branch FAMOTIDINE 2021- Yes [id number] TAKE 1 Univers 40 mg 0-20 TABLET BY ity of tablet 00:00: [facility] EVERYDAY Medical AT BEDTIME Branch FAMOTIDINE 2021- Yes [id number] TAKE 1 Univers 40 mg 0-20 TABLET BY ity of tablet 00:00: [facility] EVERYDAY Medical AT BEDTIME Branch FAMOTIDINE 2021- Yes [id number] TAKE 1 Univers 40 mg 0-20 TABLET BY ity of tablet 00:00: [facility] EVERYDAY Medical AT BEDTIME Branch FAMOTIDINE 2021-04 Yes [id number] TAKE 1 Univers 40 mg 0-20 TABLET BY ity of tablet 00:00: MOUTH [place] EVERYDAY Medical AT BEDTIME Branch FAMOTIDINE 2021-04 Yes [id number] TAKE 1 Univers 40 mg 0-20 TABLET BY ity of tablet 00:00: [facility] EVERYDAY Medical AT BEDTIME Branch FAMOTIDINE 2021-04 Yes [id number] TAKE 1 Univers 40 mg 0-20 TABLET BY ity of tablet 00:00: [facility] EVERYDAY Medical AT BEDTIME Branch FAMOTIDINE 2021-04 Yes [id number] TAKE 1 Univers 40 mg 0-20 TABLET BY ity of tablet 00:00: [facility] EVERYDAY Medical AT BEDTIME Branch FAMOTIDINE 2021-04 Yes [id number] TAKE 1 Univers 40 mg 0-20 TABLET BY ity of tablet 00:00: [facility] EVERYDAY Medical AT BEDTIME Branch FAMOTIDINE 2021-04 Yes [id number] TAKE 1 Univers 40 mg 0-20 TABLET BY ity of tablet 00:00: [facility] EVERYDAY Medical AT BEDTIME Branch FAMOTIDINE 2021-04 Yes [id number] TAKE 1 Univers 40 mg 0-20 TABLET BY ity of tablet 00:00: [facility] EVERYDAY Medical AT BEDTIME Branch FAMOTIDINE 2021-04 Yes [id number] TAKE 1 Univers 40 mg 0-20 TABLET BY ity of tablet 00:00: [facility] EVERYDAY Medical AT BEDTIME Branch FAMOTIDINE 2021-04 Yes [id number] TAKE 1 Univers 40 mg 0-20 TABLET BY ity of tablet 00:00: [facility] EVERYDAY Medical AT BEDTIME Branch FAMOTIDINE 2021-04 Yes [id number] TAKE 1 Univers 40 mg 0-20 TABLET BY ity of tablet 00:00: [facility] EVERYDAY Medical AT BEDTIME Branch FAMOTIDINE 2021-04 Yes [id number] TAKE 1 Univers 40 mg 0-20 TABLET BY ity of tablet 00:00: [facility] EVERYDAY Medical AT BEDTIME Branch FAMOTIDINE 2021-04 Yes [id number] TAKE 1 Univers 40 mg 0-20 TABLET BY ity of tablet 00:00: [facility] EVERYDAY Medical AT BEDTIME Branch aspirin 81 2021- Yes 81mg Take 81 mg U nivers mg chewable 0-19 by mouth ity of tablet 09:41: in the [place] 16 morning. Medical Branch iopamidol 2021- No [id number] 80mL 80 mL, U nivers (ISOVUE 01-01 Intravenou ity o f 370-500 mL) 13:07: 13:08 s, ONCE, 1 [place] injection 00 :00 dose, On Medica l 80 mL Mon Branch 01/01/22 at 0830, Routine budesonide- 0 Yes [id number] 2{puff} Inhale 2 Univers formoteroL 4-25 Puffs 2 ity of (SYMBICORT) 00:00: (two) [place] 80-4.5 00 times Medical mcg/actuati daily. Branch on inhaler lidocaine Yes [id number] 15mL Take 15 mL Univers 2% viscous 4-25 by mouth ity o f (LIDOCAINE 00:00: every 4 [place] VISCOUS) 2 00 (four) Medical % solution hours as Branc h needed for Oral mucosal pain. pantoprazol Yes [id number] 40mg Take 1 Univers e 4-25 tablet by ity of (PROTONIX) 00:00: mouth [place] 40 mg EC 00 daily. Medical tablet Branch losartan 25 0 Yes 25mg Take 25 mg Univers mg tablet 4-25 by mouth ity of 00:00: daily. [place] Medical Branch budesonide- 0 Yes [id number] 2{puff} Inhale 2 Univers formoteroL 4-25 Puffs 2 ity of (SYMBICORT) 00:00: (two) [place] 80-4.5 00 times Medical mcg/actuati daily. Branch on inhaler lidocaine 0 Yes [id number] 15mL Take 15 mL Univers 2% viscous 4-25 by mouth ity o f (LIDOCAINE 00:00: every 4 [place] VISCOUS) 2 00 (four) Medical % solution hours as Branc h needed for Oral mucosal pain. pantoprazol 0 Yes [id number] 40mg Take 1 Univers e 4-25 tablet by ity of (PROTONIX) 00:00: mouth [place] 40 mg EC 00 daily. Medical tablet Branch losartan 25 0 Yes 25mg Take 25 mg Univers mg tablet 4-25 by mouth ity of 00:00: daily. [place] Medical Branch budesonide- 0 Yes [id number] 2{puff} Inhale 2 Univers formoteroL 4-25 Puffs 2 ity of (SYMBICORT) 00:00: (two) [place] 80-4.5 00 times Medical mcg/actuati daily. Branch on inhaler lidocaine 2021-0 Yes [id number] 15mL Take 15 mL Univers 2% viscous 4-25 by mouth ity o f (LIDOCAINE 00:00: every 4 [place] VISCOUS) 2 00 (four) Medical % solution hours as Branc h needed for Oral mucosal pain. pantoprazol 0 Yes [id number] 40mg Take 1 Univers e 4-25 tablet by ity of (PROTONIX) 00:00: mouth [place] 40 mg EC 00 daily. Medical tablet Branch losartan 25 0 Yes 25mg Take 25 mg Univers mg tablet 4-25 by mouth ity of 00:00: daily. Medical Branch budesonide- Yes [id number] 2{puff} Inhale 2 Univers formoteroL 4-25 Puffs 2 ity of (SYMBICORT) 00:00: (two) [place] 80-4.5 00 times Medical mcg/actuati daily. Branch on inhaler lidocaine 0 Yes [id number] 15mL Take 15 mL Univers 2% viscous 4-25 by mouth ity o f (LIDOCAINE 00:00: every 4 [place] VISCOUS) 2 00 (four) Medical % solution hours as Branc h needed for Oral mucosal pain. pantoprazol 0 Yes [id number] 40mg Take 1 Univers e 4-25 tablet by ity of (PROTONIX) 00:00: mouth [place] 40 mg EC 00 daily. Medical tablet Branch losartan 25 0 Yes 25mg Take 25 mg Univers mg tablet 4-25 by mouth ity of 00:00: daily. Medical Branch budesonide- 0 Yes [id number] 2{puff} Inhale 2 Univers formoteroL 4-25 Puffs 2 ity of (SYMBICORT) 00:00: (two) [place] 80-4.5 00 times Medical mcg/actuati daily. Branch on inhaler lidocaine 2021-0 Yes [id number] 15mL Take 15 mL Univers 2% viscous 4-25 by mouth ity o f (LIDOCAINE 00:00: every 4 [place] VISCOUS) 2 00 (four) Medical % solution hours as Branc h needed for Oral mucosal pain. pantoprazol 2021-0 Yes [id number] 40mg Take 1 Univers e 4-25 tablet by ity of (PROTONIX) 00:00: mouth [place] 40 mg EC 00 daily. Medical tablet Branch losartan 25 0 Yes 25mg Take 25 mg Univers mg tablet 4-25 by mouth ity of 00:00: daily. [place] Medical Branch budesonide- 0 Yes [id number] 2{puff} Inhale 2 Univers formoteroL 4-25 Puffs 2 ity of (SYMBICORT) 00:00: (two) [place] 80-4.5 00 times Medical mcg/actuati daily. Branch on inhaler lidocaine 2021-0 Yes [id number] 15mL Take 15 mL Univers 2% viscous 4-25 by mouth ity o f (LIDOCAINE 00:00: every 4 [place] VISCOUS) 2 00 (four) Medical % solution hours as Branc h needed for Oral mucosal pain. pantoprazol 2021-0 Yes [id number] 40mg Take 1 Univers e 4-25 tablet by ity of (PROTONIX) 00:00: mouth [place] 40 mg EC 00 daily. Medical tablet Branch losartan 25 0 Yes 25mg Take 25 mg Univers mg tablet 4-25 by mouth ity of 00:00: daily. [place] Medical Branch budesonide- 0 Yes [id number] 2{puff} Inhale 2 Univers formoteroL 4-25 Puffs 2 ity of (SYMBICORT) 00:00: (two) [place] 80-4.5 00 times Medical mcg/actuati daily. Branch on inhaler lidocaine 2021-0 Yes [id number] 15mL Take 15 mL Univers 2% viscous 4-25 by mouth ity o f (LIDOCAINE 00:00: every 4 [place] VISCOUS) 2 00 (four) Medical % solution hours as Branc h needed for Oral mucosal pain. pantoprazol 2021-0 Yes [id number] 40mg Take 1 Univers e 4-25 tablet by ity of (PROTONIX) 00:00: mouth [place] 40 mg EC 00 daily. Medical tablet Branch losartan 25 2021-0 Yes 25mg Take 1 Univ ers mg tablet 4-25 tablet by ity o f 00:00: mouth in [place] 00 the Medical morning. Branch budesonide- 0 Yes [id number] 2{puff} Inhale 2 Univers formoteroL 4-25 Puffs 2 ity of (SYMBICORT) 00:00: (two) [place] 80-4.5 00 times Medical mcg/actuati daily. Branch on inhaler lidocaine 2021-0 Yes [id number] 15mL Take 15 mL Univers 2% viscous 4-25 by mouth ity o f (LIDOCAINE 00:00: every 4 [place] VISCOUS) 2 00 (four) Medical % solution hours as Branc h needed for Oral mucosal pain. pantoprazol 2021-0 Yes [id number] 40mg Take 1 Univers e 4-25 tablet by ity of (PROTONIX) 00:00: mouth [place] 40 mg EC 00 daily. Medical tablet Branch losartan 25 0 Yes 25mg Take 1 Univ ers mg tablet 4-25 tablet by ity o f 00:00: mouth in [place] 00 the Medical morning. Branch budesonide- 2021- Yes [id number] 2{puff} Inhale 2 Univers formoteroL 4-25 Puffs 2 ity of (SYMBICORT) 00:00: (two) [place] 80-4.5 00 times Medical mcg/actuati daily. Branch on inhaler lidocaine 2021-0 Yes [id number] 15mL Take 15 mL [facility] 2% viscous 4-25 by mouth ity o f (LIDOCAINE 00:00: [place] 2 [place] (four) Medical % solution hours as Branc h needed for Oral mucosal pain. pantoprazol 2021-0 Yes [id number] 40mg Take 1 [facility] e 4-25 tablet by ity of (PROTONIX) 00:00: mouth [place] 40 mg EC 00 daily. Medical tablet Branch famotidine 2021-0 Yes [id number] 40mg Take 1 [facility] 40 mg 4-25 tablet by ity of tablet 00:00: mouth at [place] 00 bedtime. Medical Branch losartan 25 2021-0 Yes 25mg Take 25 mg [facility] mg tablet 4-25 by mouth ity of 00:00: daily. [place] 00 Medical Branch budesonide- 2021-0 Yes [id number] 2{puff} Inhale 2 [facility] formoteroL 4-25 Puffs 2 ity of (SYMBICORT) 00:00: (two) [place] 80-4.5 00 times Medical mcg/actuati daily. Branch on inhaler lidocaine 0 Yes [id number] 15mL Take 15 mL [facility] 2% viscous 4-25 by mouth ity o f (LIDOCAINE 00:00: [place] 4 [place] 2 00 (four) Medical % solution hours as Branc h needed for Oral mucosal pain. pantoprazol 0 Yes [id number] 40mg Take 1 [facility] e 4-25 tablet by ity of (PROTONIX) 00:00: mouth [place] 40 mg EC 00 daily. Medical tablet Branch famotidine 0 Yes [id number] 40mg Take 1 [facility] 40 mg 4-25 tablet by ity of tablet 00:00: mouth at [place] 00 bedtime. Medical Branch losartan 25 0 Yes 25mg Take 25 mg [facility] mg tablet 4-25 by mouth ity of 00:00: daily. [place] [facility] budesonide- Yes [id number] 2{puff} Inhale 2 [facility] formoteroL 4-25 Puffs 2 ity of (SYMBICORT) 00:00: (two) [place] 80-4.5 00 times Medical mcg/actuati daily. Branch on inhaler lidocaine Yes [id number] 15mL Take 15 mL [facility] 2% viscous 4-25 by mouth ity o f (LIDOCAINE 00:00: every 4 [place] VISC[place] 2 00 (four) Medical % solution hours as Branc h needed for Oral mucosal pain. pantoprazol 0 Yes [id number] 40mg Take 1 [facility] e 4-25 tablet by ity of (PROTONIX) 00:00: mouth [place] 40 mg EC 00 daily. Medical tablet Branch famotidine 0 Yes [id number] 40mg Take 1 [facility] 40 mg 4-25 tablet by ity of tablet 00:00: mouth at [place] 00 bedtime. Medical Branch losartan 25 2021-0 Yes 25mg Take 25 mg [facility] mg tablet 4-25 by mouth ity of 00:00: daily. [place] [facility] budesonide- 2021-0 Yes [id number] 2{puff} Inhale 2 [facility] formoteroL 4-25 Puffs 2 ity of (SYMBICORT) 00:00: (two) [place] 80-4.5 00 times Medical mcg/actuati daily. Branch on inhaler lidocaine Yes [id number] 15mL Take 15 mL [facility] 2% viscous 4-25 by mouth ity o f (LIDOCAINE 00:00: every 4 [place] V[place] 2 00 (four) Medical % solution hours as Branc h needed for Oral mucosal pain. pantoprazol 0 Yes [id number] 40mg Take 1 [facility] e 4-25 tablet by ity of (PROTONIX) 00:00: mouth [place] 40 mg EC 00 daily. Medical tablet Branch famotidine 0 Yes [id number] 40mg Take 1 [facility] 40 mg 4-25 tablet by ity of tablet 00:00: mouth at [place] 00 bedtime. Medical Branch losartan 25 0 Yes 25mg Take 25 mg [facility] mg tablet 4-25 by mouth ity of 00:00: daily. [place] [facility] budesonide- Yes [id number] 2{puff} Inhale 2 [facility] formoteroL 4-25 Puffs 2 ity of (SYMBICORT) 00:00: (two) [place] 80-4.5 00 times Medical mcg/actuati daily. Branch on inhaler lidocaine Yes [id number] 15mL Take 15 mL [facility] 2% viscous 4-25 by mouth ity o f (LIDOCAINE 00:00: every 4 [place] VISC[place] 2 00 (four) Medical % solution hours as Branc h needed for Oral mucosal pain. pantoprazol Yes [id number] 40mg Take 1 [facility] e 4-25 tablet by ity of (PROTONIX) 00:00: mouth [place] 40 mg EC 00 daily. Medical tablet Branch famotidine 0 Yes [id number] 40mg Take 1 [facility] 40 mg 4-25 tablet by ity of tablet 00:00: mouth at [place] 00 bedtime. Medical Branch losartan 25 0 Yes 25mg Take 25 mg [facility] mg tablet 4-25 by mouth ity of 00:00: daily. [place] [facility] budesonide- 0 Yes [id number] 2{puff} Inhale 2 [facility] formoteroL 4-25 Puffs 2 ity of (SYMBICORT) 00:00: (two) [place] 80-4.5 00 times Medical mcg/actuati daily. Branch on inhaler lidocaine Yes [id number] 15mL Take 15 mL [facility] 2% viscous 4-25 by mouth ity o f (LIDOCAINE 00:00: every 4 [place] VISC[place] 2 00 (four) Medical % solution hours as Branc h needed for Oral mucosal pain. pantoprazol 0 Yes [id number] 40mg Take 1 [facility] e 4-25 tablet by ity of (PROTONIX) 00:00: mouth [place] 40 mg EC 00 daily. Medical tablet Branch famotidine 0 Yes [id number] 40mg Take 1 [facility] 40 mg 4-25 tablet by ity of tablet 00:00: mouth at [place] 00 bedtime. Medical Branch losartan 25 0 Yes 25mg Take 25 mg [facility] mg tablet 4-25 by mouth ity of 00:00: daily. [place] [facility] budesonide- Yes [id number] 2{puff} Inhale 2 [facility] formoteroL 4-25 Puffs 2 ity of (SYMBICORT) 00:00: (two) [place] 80-4.5 00 times Medical mcg/actuati daily. Branch on inhaler lidocaine Yes [id number] 15mL Take 15 mL [facility] 2% viscous 4-25 by mouth ity o f (LIDOCAINE 00:00: every 4 [place] VISC[place] 2 00 (four) Medical % solution hours as Branc h needed for Oral mucosal pain. pantoprazol Yes [id number] 40mg Take 1 [facility] e 4-25 tablet by ity of (PROTONIX) 00:00: mouth [place] 40 mg EC 00 daily. Medical tablet Branch famotidine 0 Yes [id number] 40mg Take 1 [facility] 40 mg 4-25 tablet by ity of tablet 00:00: mouth at [place] 00 bedtime. Medical Branch losartan 25 0 Yes 25mg Take 25 mg [facility] mg tablet 4-25 by mouth ity of 00:00: daily. [place] [facility] budesonide- 0 Yes [id number] 2{puff} Inhale 2 [facility] formoteroL 4-25 Puffs 2 ity of (SYMBICORT) 00:00: (two) [place] 80-4.5 00 times Medical mcg/actuati daily. Branch on inhaler lidocaine 0 Yes [id number] 15mL Take 15 mL [facility] 2% viscous 4-25 by mouth ity o f (LIDOCAINE 00:00: every 4 [place] VISC[place] 2 00 (four) Medical % solution hours as Branc h needed for Oral mucosal pain. pantoprazol 0 Yes [id number] 40mg Take 1 [facility] e 4-25 tablet by ity of (PROTONIX) 00:00: mouth [place] 40 mg EC 00 daily. Medical tablet Branch famotidine 0 Yes [id number] 40mg Take 1 [facility] 40 mg 4-25 tablet by ity of tablet 00:00: mouth at [place] 00 bedtime. Medical Branch losartan 25 0 Yes 25mg Take 25 mg [facility] mg tablet 4-25 by mouth ity of 00:00: daily. [place] [facility] budesonide- Yes [id number] 2{puff} Inhale 2 [facility] formoteroL 4-25 Puffs 2 ity of (SYMBICORT) 00:00: (two) [place] 80-4.5 00 times Medical mcg/actuati daily. Branch on inhaler lidocaine Yes [id number] 15mL Take 15 mL [facility] 2% viscous 4-25 by mouth ity o f (LIDOCAINE 00:00: every 4 [place] VISCOUS[place] 2 00 (four) Medical % solution hours as Branc h needed for Oral mucosal pain. pantoprazol 0 Yes [id number] 40mg Take 1 [facility] e 4-25 tablet by ity of (PROTONIX) 00:00: mouth [place] 40 mg EC 00 daily. Medical tablet Branch famotidine 0 Yes [id number] 40mg Take 1 [facility] 40 mg 4-25 tablet by ity of tablet 00:00: mouth at [place] 00 bedtime. Medical Branch losartan 25 0 Yes 25mg Take 25 mg [facility] mg tablet 4-25 by mouth ity of 00:00: daily. [place] [address] Medical Branch budesonide- 0 Yes [id number] 2{puff} Inhale 2 [facility] formoteroL 4-25 Puffs 2 ity of (SYMBICORT) 00:00: (two) [place] 80-4.5 00 times Medical mcg/actuati daily. Branch on inhaler lidocaine 2021-0 Yes [id number] 15mL Take 15 mL [facility] 2% viscous 4-25 by mouth ity o f (LIDOCAINE 00:00: every 4 [place] VISC[place] 2 00 (four) Medical % solution hours as Branc h needed for Oral mucosal pain. pantoprazol 2021-0 Yes [id number] 40mg Take 1 [facility] e 4-25 tablet by ity of (PROTONIX) 00:00: mouth [place] 40 mg EC 00 daily. Medical tablet Branch famotidine 2021-0 Yes [id number] 40mg Take 1 [facility] 40 mg 4-25 tablet by ity of tablet 00:00: mouth at [place] 00 bedtime. Medical Branch losartan 25 2021-0 Yes 25mg Take 25 mg [facility] mg tablet 4-25 by mouth ity of 00:00: daily. [place] [facility] budesonide- 2021-0 Yes [id number] 2{puff} Inhale 2 [facility] formoteroL 4-25 Puffs 2 ity of (SYMBICORT) 00:00: (two) [place] 80-4.5 00 times Medical mcg/actuati daily. Branch on inhaler lidocaine 2021-0 Yes [id number] 15mL Take 15 mL [facility] 2% viscous 4-25 by mouth ity o f (LIDOCAINE 00:00: every 4 [place] VISC[place] 2 00 (four) Medical % solution hours as Branc h needed for Oral mucosal pain. pantoprazol 2021-0 Yes [id number] 40mg Take 1 [facility] e 4-25 tablet by ity of (PROTONIX) 00:00: mouth [place] 40 mg EC 00 daily. Medical tablet Branch famotidine 0 Yes [id number] 40mg Take 1 [facility] 40 mg 4-25 tablet by ity of tablet 00:00: mouth at [place] 00 bedtime. Medical Branch losartan 25 2021-0 Yes 25mg Take 25 mg [facility] mg tablet 4-25 by mouth ity of 00:00: daily. [place] [address] Medical Branch budesonide- 2021-0 Yes [id number] 2{puff} Inhale 2 [facility] formoteroL 4-25 Puffs 2 ity of (SYMBICORT) 00:00: (two) [place] 80-4.5 00 times Medical mcg/actuati daily. Branch on inhaler lidocaine 2021-0 Yes [id number] 15mL Take 15 mL [facility] 2% viscous 4-25 by mouth ity o f (LIDOCAINE 00:00: every 4 [place] VISC[place] 2 00 (four) Medical % solution hours as Branc h needed for Oral mucosal pain. pantoprazol 0 Yes [id number] 40mg Take 1 [facility] e 4-25 tablet by ity of (PROTONIX) 00:00: mouth [place] 40 mg EC 00 daily. Medical tablet Branch famotidine 0 Yes [id number] 40mg Take 1 [facility] 40 mg 4-25 tablet by ity of tablet 00:00: mouth at [place] 00 bedtime. Medical Branch losartan 25 0 Yes 25mg Take 25 mg [facility] mg tablet 4-25 by mouth ity of 00:00: daily. Medical Branch budesonide- Yes [id number] 2{puff} Inhale 2 [facility] formoteroL 4-25 Puffs 2 ity of (SYMBICORT) 00:00: (two) [place] 80-4.5 00 times Medical mcg/actuati daily. Branch on inhaler lidocaine Yes [id number] 15mL Take 15 mL [facility] 2% viscous 4-25 by mouth ity o f (LIDOCAINE 00:00: every 4 [place] VISCOUS[place] 2 00 (four) Medical % solution hours as Branc h needed for Oral mucosal pain. pantoprazol 0 Yes [id number] 40mg Take 1 [facility] e 4-25 tablet by ity of (PROTONIX) 00:00: mouth [place] 40 mg EC 00 daily. Medical tablet Branch losartan 25 0 Yes 25mg Take 25 mg [facility] mg tablet 4-25 by mouth ity of 00:00: daily. [place] [facility] budesonide- Yes [id number] 2{puff} Inhale 2 [facility] formoteroL 4-25 Puffs 2 ity of (SYMBICORT) 00:00: (two) [place] 80-4.5 00 times Medical mcg/actuati daily. Branch on inhaler lidocaine 2021-0 Yes [id number] 15mL Take 15 mL [facility] 2% viscous 4-25 by mouth ity o f (LIDOCAINE 00:00: every 4 [place] VISCOUS[place] 2 00 (four) Medical % solution hours as Branc h needed for Oral mucosal pain. pantoprazol 2021-0 Yes [id number] 40mg Take 1 [facility] e 4-25 tablet by ity of (PROTONIX) 00:00: mouth [place] 40 mg EC 00 daily. Medical tablet Branch losartan 25 0 Yes 25mg Take 25 mg [facility] mg tablet 4-25 by mouth ity of 00:00: daily. Medical Branch budesonide- 0 Yes [id number] 2{puff} Inhale 2 [facility] formoteroL 4-25 Puffs 2 ity of (SYMBICORT) 00:00: (two) [place] 80-4.5 00 times Medical mcg/actuati daily. Branch on inhaler lidocaine 0 Yes [id number] 15mL Take 15 mL [facility] 2% viscous 4-25 by mouth ity o f (LIDOCAINE 00:00: every 4 [place] VISCOUS[place] 2 00 (four) Medical % solution hours as Branc h needed for Oral mucosal pain. pantoprazol 0 Yes [id number] 40mg Take 1 [facility] e 4-25 tablet by ity of (PROTONIX) 00:00: mouth [place] 40 mg EC 00 daily. Medical tablet Branch losartan 25 0 Yes 25mg Take 25 mg [facility] mg tablet 4-25 by mouth ity of 00:00: daily. [place] [facility] budesonide- 0 Yes [id number] 2{puff} Inhale 2 [facility] formoteroL 4-25 Puffs 2 ity of (SYMBICORT) 00:00: (two) [place] 80-4.5 00 times Medical mcg/actuati daily. Branch on inhaler lidocaine 0 Yes [id number] 15mL Take 15 mL [facility] 2% viscous 4-25 by mouth ity o f (LIDOCAINE 00:00: every 4 [place] VISCOUS[place] 2 00 (four) Medical % solution hours as Branc h needed for Oral mucosal pain. pantoprazol 2021-0 Yes [id number] 40mg Take 1 [facility] e 4-25 tablet by ity of (PROTONIX) 00:00: mouth [place] 40 mg EC 00 daily. Medical tablet Branch losartan 25 0 Yes 25mg Take 25 mg [facility] mg tablet 4-25 by mouth ity of 00:00: daily. Medical Branch budesonide- 0 Yes [id number] 2{puff} Inhale 2 [facility] formoteroL 4-25 Puffs 2 ity of (SYMBICORT) 00:00: (two) [place] 80-4.5 00 times Medical mcg/actuati daily. Branch on inhaler lidocaine 2021-0 Yes [id number] 15mL Take 15 mL [facility] 2% viscous 4-25 by mouth ity o f (LIDOCAINE 00:00: every 4 [place] VISCOUS[place] 2 00 (four) Medical % solution hours as Branc h needed for Oral mucosal pain. pantoprazol 2021-0 Yes [id number] 40mg Take 1 [facility] e 4-25 tablet by ity of (PROTONIX) 00:00: mouth [place] 40 mg EC 00 daily. Medical tablet Branch losartan 25 0 Yes 25mg Take 25 mg [facility] mg tablet 4-25 by mouth ity of 00:00: daily. [place] [facility] budesonide- Yes [id number] 2{puff} Inhale 2 [facility] formoteroL 4-25 Puffs 2 ity of (SYMBICORT) 00:00: (two) [place] 80-4.5 00 times Medical mcg/actuati daily. Branch on inhaler lidocaine 0 Yes [id number] 15mL Take 15 mL [facility] 2% viscous 4-25 by mouth ity o f (LIDOCAINE 00:00: every 4 [place] VISCOUS[place] 2 00 (four) Medical % solution hours as Branc h needed for Oral mucosal pain. pantoprazol 2021-0 Yes [id number] 40mg Take 1 [facility] e 4-25 tablet by ity of (PROTONIX) 00:00: mouth [place] 40 mg EC 00 daily. Medical tablet Branch losartan 25 0 Yes 25mg Take 25 mg [facility] mg tablet 4-25 by mouth ity of 00:00: daily. [place] [facility] budesonide- 0 Yes [id number] 2{puff} Inhale 2 [facility] formoteroL 4-25 Puffs 2 ity of (SYMBICORT) 00:00: (two) [place] 80-4.5 00 times Medical mcg/actuati daily. Branch on inhaler lidocaine 2021-0 Yes [id number] 15mL Take 15 mL [facility] 2% viscous 4-25 by mouth ity o f (LIDOCAINE 00:00: every 4 [place] VISCOUS[place] 2 00 (four) Medical % solution hours as Branc h needed for Oral mucosal pain. pantoprazol 2021-0 Yes [id number] 40mg Take 1 [facility] e 4-25 tablet by ity of (PROTONIX) 00:00: mouth [place] 40 mg EC 00 daily. Medical tablet Branch losartan 25 Yes 25mg Take 25 mg [facility] mg tablet 4-25 by mouth ity of 00:00: daily. Medical Branch budesonide- Yes [id number] 2{puff} Inhale 2 [facility] formoteroL 4-25 Puffs 2 ity of (SYMBICORT) 00:00: (two) [place] 80-4.5 00 times Medical mcg/actuati daily. Branch on inhaler lidocaine Yes [id number] 15mL Take 15 mL [facility] 2% viscous 4-25 by mouth ity o f (LIDOCAINE 00:00: every 4 [place] VISCOUS[place] 2 00 (four) Medical % solution hours as Branc h needed for Oral mucosal pain. pantoprazol Yes [id number] 40mg Take 1 [facility] e 4-25 tablet by ity of (PROTONIX) 00:00: mouth [place] 40 mg EC 00 daily. Medical tablet Branch losartan 25 Yes 25mg Take 25 mg [facility] mg tablet 4-25 by mouth ity of 00:00: daily. Medical Branch budesonide- Yes [id number] 2{puff} Inhale 2 [facility] formoteroL 4-25 Puffs 2 ity of (SYMBICORT) 00:00: (two) [place] 80-4.5 00 times Medical mcg/actuati daily. Branch on inhaler lidocaine Yes [id number] 15mL Take 15 mL [facility] 2% viscous 4-25 by mouth ity o f (LIDOCAINE 00:00: every 4 [place] VISCOUS) 2 00 (four) Medical % solution hours as Branc h needed for Oral mucosal pain. pantoprazol Yes [id number] 40mg Take 1 [facility] e 4-25 tablet by ity of (PROTONIX) 00:00: mouth [place] 40 mg EC 00 daily. Medical tablet Branch losartan 25 Yes 25mg Take 25 mg [facility] mg tablet 4-25 by mouth ity of 00:00: daily. Medical Branch budesonide- Yes [id number] 2{puff} Inhale 2 [facility] formoteroL 4-25 Puffs 2 ity of (SYMBICORT) 00:00: (two) [place] 80-4.5 00 times Medical mcg/actuati daily. Branch on inhaler lidocaine 2021-0 Yes [id number] 15mL Take 15 mL [facility] 2% viscous 4-25 by mouth ity o f (LIDOCAINE 00:00: every 4 [place] VISCOUS) 2 00 (four) Medical % solution hours as Branc h needed for Oral mucosal pain. pantoprazol 2021-0 Yes [id number] 40mg Take 1 [facility] e 4-25 tablet by ity of (PROTONIX) 00:00: mouth [place] 40 mg EC 00 daily. Medical tablet Branch losartan 25 0 Yes 25mg Take 25 mg [facility] mg tablet 4-25 by mouth ity of 00:00: daily. Medical Branch budesonide- Yes [id number] 2{puff} Inhale 2 [facility] formoteroL 4-25 Puffs 2 ity of (SYMBICORT) 00:00: (two) [place] 80-4.5 00 times Medical mcg/actuati daily. Branch on inhaler lidocaine 2021-0 Yes [id number] 15mL Take 15 mL [facility] 2% viscous 4-25 by mouth ity o f (LIDOCAINE 00:00: every 4 [place] VISCOUS) 2 00 (four) Medical % solution hours as Branc h needed for Oral mucosal pain. pantoprazol 0 Yes [id number] 40mg Take 1 [facility] e 4-25 tablet by ity of (PROTONIX) 00:00: mouth [place] 40 mg EC 00 daily. Medical tablet Branch losartan 25 0 Yes 25mg Take 25 mg [facility] mg tablet 4-25 by mouth ity of 00:00: daily. Medical Branch famotidine 2021- No [id number] 40mg Take 1 [facility] 40 mg 4-25 10-20 tablet by ity of tablet 00:00: 00:00 mouth at [place] 00 :00 bedtime. Medical Branch famotidine 2021-0 2021- No [id number] 40mg Take 1 [facility] 40 mg 4-25 10-20 tablet by ity of tablet 00:00: 00:00 mouth at [place] 00 :00 bedtime. Medical Branch famotidine 2021-0 2021- No [id number] 40mg Take 1 [facility] 40 mg 4-25 10-20 tablet by ity of tablet 00:00: 00:00 mouth at [place] 00 :00 bedtime. Medical Branch benzonatate 2021-0 Yes TAKE 1 [facility] ers 100 mg 4-06 CAPSULE BY ity of capsule 00:00: MOUTH 3 [place] TIMES A Medical DAY Branch NEEDED FOR COUGH cetirizine 0 Yes TAKE 1 [facility] rs 10 mg 4-06 TABLET (10 ity of tablet 00:00: MG) BY [place] [address] MOUTH Medical DAILY. Branch benzonatate 0 Yes TAKE 1 [facility] ers 100 mg 4-06 CAPSULE BY ity of capsule 00:00: MOUTH 3 [place] TIMES A Medical DAY Branch NEEDED FOR COUGH cetirizine 0 Yes TAKE 1 [facility] rs 10 mg 4-06 TABLET (10 ity of tablet 00:00: MG) BY [place] [address] MOUTH Medical DAILY. Branch benzonatate 2021- Yes TAKE 1 [facility] ers 100 mg 4-06 CAPSULE BY ity of capsule 00:00: MOUTH 3 [place] TIMES A Medical DAY Branch NEEDED FOR COUGH cetirizine 0 Yes TAKE 1 [facility] rs 10 mg 4-06 TABLET (10 ity of tablet 00:00: MG) BY [place] [address] MOUTH Medical DAILY. Branch benzonatate Yes TAKE 1 [facility] ers 100 mg 4-06 CAPSULE BY ity of capsule 00:00: MOUTH 3 [place] TIMES A Medical DAY Branch NEEDED FOR COUGH cetirizine 2021-0 Yes TAKE 1 [facility] rs 10 mg 4-06 TABLET (10 ity of tablet 00:00: MG) BY [place] [address] MOUTH Medical DAILY. Branch benzonatate 2021-0 Yes TAKE 1 [facility] ers 100 mg 4-06 CAPSULE BY ity of capsule 00:00: MOUTH 3 [place] TIMES A Medical DAY Branch NEEDED FOR COUGH cetirizine 2021-0 Yes TAKE 1 [facility] rs 10 mg 4-06 TABLET (10 ity of tablet 00:00: MG) BY [place] [address] MOUTH Medical DAILY. Branch benzonatate 2021-0 Yes TAKE 1 [facility] ers 100 mg 4-06 CAPSULE BY ity of capsule 00:00: MOUTH 3 [place] TIMES A Medical DAY Branch NEEDED FOR COUGH cetirizine 2021-0 Yes TAKE 1 [facility] rs 10 mg 4-06 TABLET (10 ity of tablet 00:00: MG) BY [address] DAILY. Branch benzonatate 2021-0 Yes TAKE 1 [facility] ers 100 mg 4-06 CAPSULE BY ity of capsule 00:00: MOUTH 3 [place] TIMES A Medical DAY Branch NEEDED FOR COUGH cetirizine 2021-0 Yes TAKE 1 [facility] rs 10 mg 4-06 TABLET (10 ity of tablet 00:00: MG) BY [address] DAILY. Branch benzonatate 2021-0 Yes TAKE 1 [facility] ers 100 mg 4-06 CAPSULE BY ity of capsule 00:00: MOUTH 3 [place] TIMES A Medical DAY Branch NEEDED FOR COUGH cetirizine 2021-0 Yes TAKE 1 [facility] rs 10 mg 4-06 TABLET (10 ity of tablet 00:00: MG) BY [address] DAILY. Branch benzonatate 2021-0 Yes TAKE 1 [facility] ers 100 mg 4-06 CAPSULE BY ity of capsule 00:00: MOUTH 3 [place] TIMES A Medical DAY Branch NEEDED FOR COUGH cetirizine 2021-0 Yes TAKE 1 [facility] rs 10 mg 4-06 TABLET (10 ity of tablet 00:00: MG) BY [address] DAILY. Branch benzonatate 2021-0 Yes TAKE 1 [facility] ers 100 mg 4-06 CAPSULE BY ity of capsule 00:00: MOUTH 3 [place] TIMES A Medical DAY Branch NEEDED FOR COUGH cetirizine 2021-0 Yes TAKE 1 [facility] rs 10 mg 4-06 TABLET (10 ity of tablet 00:00: MG) BY [address] DAILY. Branch benzonatate 2021-0 Yes TAKE 1 [facility] ers 100 mg 4-06 CAPSULE BY ity of capsule 00:00: MOUTH 3 [place] TIMES A Medical DAY Branch NEEDED FOR COUGH cetirizine 2021-0 Yes TAKE 1 [facility] rs 10 mg 4-06 TABLET (10 ity of tablet 00:00: MG) BY [address] DAILY. Branch benzonatate 2021-0 Yes TAKE 1 [facility] ers 100 mg 4-06 CAPSULE BY ity of capsule 00:00: MOUTH 3 [place] TIMES A Medical DAY Branch NEEDED FOR COUGH cetirizine 2021-0 Yes TAKE 1 [facility] rs 10 mg 4-06 TABLET (10 ity of tablet 00:00: MG) BY [address] Medical DAILY. Branch benzonatate 2021-0 Yes TAKE 1 [facility] ers 100 mg 4-06 CAPSULE BY ity of capsule 00:00: MOUTH 3 [place] TIMES A Medical DAY Branch NEEDED FOR COUGH cetirizine 2021-0 Yes TAKE 1 [facility] rs 10 mg 4-06 TABLET (10 ity of tablet 00:00: MG) BY [place] [address] MOUTH Medical DAILY. Branch benzonatate 2021-0 Yes TAKE 1 [facility] ers 100 mg 4-06 CAPSULE BY ity of capsule 00:00: MOUTH 3 [place] TIMES A Medical DAY Branch NEEDED FOR COUGH cetirizine 2021-0 Yes TAKE 1 [facility] rs 10 mg 4-06 TABLET (10 ity of tablet 00:00: MG) BY [place] [address] MOUTH Medical DAILY. Branch benzonatate 2021-0 Yes TAKE 1 [facility] ers 100 mg 4-06 CAPSULE BY ity of capsule 00:00: MOUTH 3 [place] TIMES A Medical DAY Branch NEEDED FOR COUGH cetirizine 2021-0 Yes TAKE 1 [facility] rs 10 mg 4-06 TABLET (10 ity of tablet 00:00: MG) BY [address] Medical DAILY. Branch benzonatate 2021-0 Yes TAKE 1 [facility] ers 100 mg 4-06 CAPSULE BY ity of capsule 00:00: MOUTH 3 [place] TIMES A Medical DAY Branch NEEDED FOR COUGH cetirizine 2021-0 Yes TAKE 1 [facility] rs 10 mg 4-06 TABLET (10 ity of tablet 00:00: MG) BY [address] Medical DAILY. Branch benzonatate 2021-0 Yes TAKE 1 [facility] ers 100 mg 4-06 CAPSULE BY ity of capsule 00:00: MOUTH 3 [place] TIMES A Medical DAY Branch NEEDED FOR COUGH cetirizine 2021-0 Yes TAKE 1 [facility] rs 10 mg 4-06 TABLET (10 ity of tablet 00:00: MG) BY [place] [address] MOUTH Medical DAILY. Branch benzonatate 2021-0 Yes TAKE 1 [facility] ers 100 mg 4-06 CAPSULE BY ity of capsule 00:00: MOUTH 3 [place] TIMES A Medical DAY Branch NEEDED FOR COUGH cetirizine 2021-0 Yes TAKE 1 [facility] rs 10 mg 4-06 TABLET (10 ity of tablet 00:00: MG) BY [place] [address] MOUTH Medical DAILY. Branch benzonatate 2021-0 Yes TAKE 1 [facility] ers 100 mg 4-06 CAPSULE BY ity of capsule 00:00: MOUTH 3 TIMES A Medical DAY Branch NEEDED FOR COUGH cetirizine 2021-0 Yes TAKE 1 [facility] rs 10 mg 4-06 TABLET (10 ity of tablet 00:00: MG) BY [address] Medical DAILY. Branch benzonatate 2021-0 Yes TAKE 1 [facility] ers 100 mg 4-06 CAPSULE BY ity of capsule 00:00: MOUTH 3 [place] TIMES A Medical DAY Branch NEEDED FOR COUGH cetirizine 0 Yes TAKE 1 [facility] rs 10 mg 4-06 TABLET (10 ity of tablet 00:00: MG) BY [place] [address] MOUTH Medical DAILY. Branch benzonatate Yes TAKE 1 [facility] ers 100 mg 4-06 CAPSULE BY ity of capsule 00:00: MOUTH 3 [place] TIMES A Medical DAY Branch NEEDED FOR COUGH cetirizine 0 Yes TAKE 1 [facility] rs 10 mg 4-06 TABLET (10 ity of tablet 00:00: MG) BY [address] DAILY. Branch benzonatate Yes TAKE 1 [facility] ers 100 mg 4-06 CAPSULE BY ity of capsule 00:00: MOUTH 3 [place] TIMES A Medical DAY Branch NEEDED FOR COUGH cetirizine 0 Yes TAKE 1 [facility] rs 10 mg 4-06 TABLET (10 ity of tablet 00:00: MG) BY [address] DAILY. Branch benzonatate 2021- Yes TAKE 1 [facility] ers 100 mg 4-06 CAPSULE BY ity of capsule 00:00: MOUTH 3 [place] TIMES A Medical DAY Branch NEEDED FOR COUGH cetirizine 2021-0 Yes TAKE 1 [facility] rs 10 mg 4-06 TABLET (10 ity of tablet 00:00: MG) BY [address] Medical DAILY. Branch benzonatate 2021-0 Yes TAKE 1 [facility] ers 100 mg 4-06 CAPSULE BY ity of capsule 00:00: MOUTH 3 [place] TIMES A Medical DAY Branch NEEDED FOR COUGH cetirizine 2021-0 Yes TAKE 1 [facility] rs 10 mg 4-06 TABLET (10 ity of tablet 00:00: MG) BY [address] Medical DAILY. Branch benzonatate 2021-0 Yes TAKE 1 [facility] ers 100 mg 4-06 CAPSULE BY ity of capsule 00:00: MOUTH 3 [place] TIMES A Medical DAY Branch NEEDED FOR COUGH cetirizine 2021-0 Yes TAKE 1 [facility] rs 10 mg 4-06 TABLET (10 ity of tablet 00:00: MG) BY [place] [address] MOUTH Medical DAILY. Branch benzonatate 2021-0 Yes TAKE 1 [facility] ers 100 mg 4-06 CAPSULE BY ity of capsule 00:00: MOUTH 3 [place] TIMES A Medical DAY Branch NEEDED FOR COUGH cetirizine 2021-0 Yes TAKE 1 [facility] rs 10 mg 4-06 TABLET (10 ity of tablet 00:00: MG) BY [address] Medical DAILY. Branch benzonatate 2021-0 Yes TAKE 1 [facility] ers 100 mg 4-06 CAPSULE BY ity of capsule 00:00: MOUTH 3 [place] TIMES A Medical DAY Branch NEEDED FOR COUGH cetirizine 2021-0 Yes TAKE 1 [facility] rs 10 mg 4-06 TABLET (10 ity of tablet 00:00: MG) BY [place] [address] MOUTH Medical DAILY. Branch benzonatate 2021-0 Yes TAKE 1 [facility] ers 100 mg 4-06 CAPSULE BY ity of capsule 00:00: MOUTH 3 [place] TIMES A Medical DAY Branch NEEDED FOR COUGH cetirizine 2021-0 Yes TAKE 1 [facility] rs 10 mg 4-06 TABLET (10 ity of tablet 00:00: MG) BY [address] [address] DAILY. Branch benzonatate 2021-0 Yes TAKE 1 Univ ers 100 mg 4-06 CAPSULE BY ity of capsule 00:00: MOUTH 3 [place] TIMES A Medical DAY Branch NEEDED FOR COUGH cetirizine 2021-0 Yes TAKE 1 Unive rs 10 mg 4-06 TABLET (10 ity of tablet 00:00: MG) BY [address] DAILY. Branch benzonatate 2021-0 Yes TAKE 1 Univ ers 100 mg 4-06 CAPSULE BY ity of capsule 00:00: MOUTH 3 [place] TIMES A Medical DAY Branch NEEDED FOR COUGH cetirizine 2021-0 Yes TAKE 1 Unive rs 10 mg 4-06 TABLET (10 ity of tablet 00:00: MG) BY [address] Medical DAILY. Branch benzonatate 2021-0 Yes TAKE 1 Univ ers 100 mg 4-06 CAPSULE BY ity of capsule 00:00: MOUTH 3 [place] TIMES A Medical DAY Branch NEEDED FOR COUGH cetirizine 2021-0 Yes TAKE 1 Unive rs 10 mg 4-06 TABLET (10 ity of tablet 00:00: MG) BY [address] Medical DAILY. Branch lisinopriL- 2019-04 Yes [id number] 1{tbl} Take 1 Univers hydrochloro 1-18 tablet by ity of thiazide 00:00: mouth [place] 10-12.5 mg 00 daily. Medical per tablet Branch Miscellaneo 2019-04 Yes [id number] I10 - U [employer] [facility] 05-02 Dispense ity o f Supply Kit 00:00: blood [place] 00 pressure Medical cuff (any Branch brand), take BP at home BID lisinopriL- 2019-04 Yes [id number] 1{tbl} Take 1 Univers hydrochloro 1-18 tablet by ity of thiazide 00:00: mouth [place] 10-12.5 mg 00 daily. Medical per tablet Branch Miscellaneo 2019-04 Yes [id number] I10 - U [employer] [facility] 05-02 Dispense ity o f Supply Kit 00:00: blood [place] 00 pressure Medical cuff (any Branch brand), take BP at home BID lisinopriL- 2019-04 Yes [id number] 1{tbl} Take 1 Univers hydrochloro 1-18 tablet by ity of thiazide 00:00: mouth [place] 10-12.5 mg 00 daily. Medical per tablet Branch Miscellaneo 2019-04 Yes [id number] I10 - U [employer] [facility] 05-02 Dispense ity o f Supply Kit 00:00: blood [place] 00 pressure Medical cuff (any Branch brand), take BP at home BID lisinopriL- 2019-04 Yes [id number] 1{tbl} Take 1 Univers hydrochloro 1-18 tablet by ity of thiazide 00:00: mouth [place] 10-12.5 mg 00 daily. Medical per tablet Branch Miscellaneo 2019-04 Yes [id number] I10 - U [employer] [facility] 05-02 Dispense ity o f Supply Kit 00:00: blood [place] 00 pressure Medical cuff (any Branch brand), take BP at home BID lisinopriL- 2019-04 Yes [id number] 1{tbl} Take 1 Univers hydrochloro 1-18 tablet by ity of thiazide 00:00: mouth [place] 10-12.5 mg 00 daily. Medical per tablet Branch Miscellaneo 2019-04 Yes [id number] I10 - U [employer] [facility] 05-02 Dispense ity o f Supply Kit 00:00: blood [place] 00 pressure Medical cuff (any Branch brand), take BP at home BID lisinopriL- 2019-04 Yes [id number] 1{tbl} Take 1 Univers hydrochloro 1-18 tablet by ity of thiazide 00:00: mouth [place] 10-12.5 mg 00 daily. Medical per tablet Branch Miscellaneo 2019- Yes [id number] I10 - U [employer] [facility] 05-02 Dispense ity o f Supply Kit 00:00: blood [place] 00 pressure Medical cuff (any Branch brand), take BP at home BID lisinopriL- 2019-04 Yes [id number] 1{tbl} Take 1 Univers hydrochloro 1-18 tablet by ity of thiazide 00:00: mouth [place] 10-12.5 mg 00 daily. Medical per tablet Branch Miscellaneo 2019-04 Yes [id number] I10 - U [employer] [facility] 05-02 Dispense ity o f Supply Kit 00:00: blood [place] 00 pressure Medical cuff (any Branch brand), take BP at home BID lisinopriL- 2019-04 Yes [id number] 1{tbl} Take 1 Univers hydrochloro 1-18 tablet by ity of thiazide 00:00: mouth [place] 10-12.5 mg 00 daily. Medical per tablet Branch Miscellaneo 2019-04 Yes [id number] I10 - U [employer] [facility] 05-02 Dispense ity o f Supply Kit 00:00: blood [place] 00 pressure Medical cuff (any Branch brand), take BP at home BID lisinopriL- 2019-04 Yes [id number] 1{tbl} Take 1 Univers hydrochloro 1-18 tablet by ity of thiazide 00:00: mouth [place] 10-12.5 mg 00 daily. Medical per tablet Branch Miscellaneo 2019-04 Yes [id number] I10 - U [employer] [facility] 05-02 Dispense ity o f Supply Kit 00:00: blood [place] 00 pressure Medical cuff (any Branch brand), take BP at home BID lisinopriL- 2019-04 Yes [id number] 1{tbl} Take 1 Univers hydrochloro 1-18 tablet by ity of thiazide 00:00: mouth [place] 10-12.5 mg 00 daily. Medical per tablet Branch Miscellaneo 2019-04 Yes [id number] I10 - U [employer] [facility] 05-02 Dispense ity o f Supply Kit 00:00: blood [place] 00 pressure Medical cuff (any Branch brand), take BP at home BID lisinopriL- 2019-04 Yes [id number] 1{tbl} Take 1 Univers hydrochloro 1-18 tablet by ity of thiazide 00:00: mouth [place] 10-12.5 mg 00 daily. Medical per tablet Branch Miscellaneo 2019-04 Yes [id number] I10 - U [employer] [facility] 05-02 Dispense ity o f Supply Kit 00:00: blood [place] 00 pressure Medical cuff (any Branch brand), take BP at home BID lisinopriL- 2019-04 Yes [id number] 1{tbl} Take 1 Univers hydrochloro 1-18 tablet by ity of thiazide 00:00: mouth [place] 10-12.5 mg 00 daily. Medical per tablet Branch Miscellaneo 2019-04 Yes [id number] I10 - U [employer] [facility] 05-02 Dispense ity o f Supply Kit 00:00: blood [place] 00 pressure Medical cuff (any Branch brand), take BP at home BID lisinopriL- 2019-04 Yes [id number] 1{tbl} Take 1 Univers hydrochloro 1-18 tablet by ity of thiazide 00:00: mouth [place] 10-12.5 mg 00 daily. Medical per tablet Branch Miscellaneo 2019-04 Yes [id number] I10 - U [employer] [facility] 05-02 Dispense ity o f Supply Kit 00:00: blood [place] 00 pressure Medical cuff (any Branch brand), take BP at home BID lisinopriL- 2019-04 Yes [id number] 1{tbl} Take 1 Univers hydrochloro 1-18 tablet by ity of thiazide 00:00: mouth [place] 10-12.5 mg 00 daily. Medical per tablet Branch Miscellaneo 2019-04 Yes [id number] I10 - U [employer] [facility] 05-02 Dispense ity o f Supply Kit 00:00: blood [place] 00 pressure Medical cuff (any Branch brand), take BP at home BID lisinopriL- 2019-04 Yes [id number] 1{tbl} Take 1 Univers hydrochloro 1-18 tablet by ity of thiazide 00:00: mouth [place] 10-12.5 mg 00 daily. Medical per tablet Branch Miscellaneo 2019-04 Yes [id number] I10 - U [employer] [facility] 05-02 Dispense ity o f Supply Kit 00:00: blood [place] 00 pressure Medical cuff (any Branch brand), take BP at home BID lisinopriL- 2019-04 Yes [id number] 1{tbl} Take 1 Univers hydrochloro 1-18 tablet by ity of thiazide 00:00: mouth [place] 10-12.5 mg 00 daily. Medical per tablet Branch Miscellaneo 2019-04 Yes [id number] I10 - U [employer] [facility] 05-02 Dispense ity o f Supply Kit 00:00: blood [place] 00 pressure Medical cuff (any Branch brand), take BP at home BID lisinopriL- 2019-04 Yes [id number] 1{tbl} Take 1 Univers hydrochloro 1-18 tablet by ity of thiazide 00:00: mouth [place] 10-12.5 mg 00 daily. Medical per tablet Branch Miscellaneo 2019-04 Yes [id number] I10 - U [employer] [facility] 05-02 Dispense ity o f Supply Kit 00:00: blood [place] 00 pressure Medical cuff (any Branch brand), take BP at home BID lisinopriL- 2019-04 Yes [id number] 1{tbl} Take 1 Univers hydrochloro 1-18 tablet by ity of thiazide 00:00: mouth [place] 10-12.5 mg 00 daily. Medical per tablet Branch Miscellaneo 2019-04 Yes [id number] I10 - U [employer] [facility] 05-02 Dispense ity o f Supply Kit 00:00: blood [place] 00 pressure Medical cuff (any Branch brand), take BP at home BID lisinopriL- 2019-04 Yes [id number] 1{tbl} Take 1 Univers hydrochloro 1-18 tablet by ity of thiazide 00:00: mouth [place] 10-12.5 mg 00 daily. Medical per tablet Branch Miscellaneo 2019-04 Yes [id number] I10 - U [employer] [facility] 05-02 Dispense ity o f Supply Kit 00:00: blood [place] 00 pressure Medical cuff (any Branch brand), take BP at home BID lisinopriL- 2019-04 Yes [id number] 1{tbl} Take 1 Univers hydrochloro 1-18 tablet by ity of thiazide 00:00: mouth [place] 10-12.5 mg 00 daily. Medical per tablet Branch Miscellaneo 2019-04 Yes [id number] I10 - U [employer] [facility] 05-02 Dispense ity o f Supply Kit 00:00: blood [place] 00 pressure Medical cuff (any Branch brand), take BP at home BID lisinopriL- 2019-04 Yes [id number] 1{tbl} Take 1 Univers hydrochloro 1-18 tablet by ity of thiazide 00:00: mouth [place] 10-12.5 mg 00 daily. Medical per tablet Branch Miscellaneo 2019-04 Yes [id number] I10 - U [employer] [facility] 05-02 Dispense ity o f Supply Kit 00:00: blood [place] 00 pressure Medical cuff (any Branch brand), take BP at home BID lisinopriL- 2019-04 Yes [id number] 1{tbl} Take 1 Univers hydrochloro 1-18 tablet by ity of thiazide 00:00: mouth [place] 10-12.5 mg 00 daily. Medical per tablet Branch Miscellaneo 2019-04 Yes [id number] I10 - U [employer] [facility] 05-02 Dispense ity o f Supply Kit 00:00: blood [place] 00 pressure Medical cuff (any Branch brand), take BP at home BID lisinopriL- 2019-04 Yes [id number] 1{tbl} Take 1 Univers hydrochloro 1-18 tablet by ity of thiazide 00:00: mouth [place] 10-12.5 mg 00 daily. Medical per tablet Branch Miscellaneo 2019-04 Yes [id number] I10 - U [employer] [facility] 05-02 Dispense ity o f Supply Kit 00:00: blood [place] 00 pressure Medical cuff (any Branch brand), take BP at home BID lisinopriL- 2019-04 Yes [id number] 1{tbl} Take 1 Univers hydrochloro 1-18 tablet by ity of thiazide 00:00: mouth [place] 10-12.5 mg 00 daily. Medical per tablet Branch Miscellaneo 2019-04 Yes [id number] I10 - U [employer] [facility] 05-02 Dispense ity o f Supply Kit 00:00: blood [place] 00 pressure Medical cuff (any Branch brand), take BP at home BID lisinopriL- 2019-04 Yes [id number] 1{tbl} Take 1 Univers hydrochloro 1-18 tablet by ity of thiazide 00:00: mouth [place] 10-12.5 mg 00 daily. Medical per tablet Branch Miscellaneo 2019- Yes [id number] I10 - U [employer] [facility] 05-02 Dispense ity o f Supply Kit 00:00: blood [place] 00 pressure Medical cuff (any Branch brand), take BP at home BID lisinopriL- 2019-04 Yes [id number] 1{tbl} Take 1 Univers hydrochloro 1-18 tablet by ity of thiazide 00:00: mouth [place] 10-12.5 mg 00 daily. Medical per tablet Branch Miscellaneo 2019-04 Yes [id number] I10 - U [employer] [facility] 05-02 Dispense ity o f Supply Kit 00:00: blood [place] 00 pressure Medical cuff (any Branch brand), take BP at home BID lisinopriL- 2019-04 Yes [id number] 1{tbl} Take 1 Univers hydrochloro 1-18 tablet by ity of thiazide 00:00: mouth [place] 10-12.5 mg 00 daily. Medical per tablet Branch Miscellaneo 2019-04 Yes [id number] I10 - U [employer] [facility] 05-02 Dispense ity o f Supply Kit 00:00: blood [place] 00 pressure Medical cuff (any Branch brand), take BP at home BID lisinopriL- 2019-04 Yes [id number] 1{tbl} Take 1 Univers hydrochloro 1-18 tablet by ity of thiazide 00:00: mouth [place] 10-12.5 mg 00 daily. Medical per tablet Branch Miscellaneo 2019-04 Yes [id number] I10 - U [employer] [facility] 05-02 Dispense ity o f Supply Kit 00:00: blood [place] 00 pressure Medical cuff (any Branch brand), take BP at home BID lisinopriL- 2019-04 Yes [id number] 1{tbl} Take 1 Univers hydrochloro 1-18 tablet by ity of thiazide 00:00: mouth [place] 10-12.5 mg 00 daily. Medical per tablet Branch Miscellaneo 2019-04 Yes [id number] I10 - U [employer] [facility] 05-02 Dispense ity o f Supply Kit 00:00: blood [place] 00 pressure Medical cuff (any Branch brand), take BP at home BID lisinopriL- 2019-04 Yes [id number] 1{tbl} Take 1 Univers hydrochloro 1-18 tablet by ity of thiazide 00:00: mouth [place] 10-12.5 mg 00 daily. Medical per tablet Branch Miscellaneo 2019-04 Yes [id number] I10 - U [employer] [facility] 1-18 Dispense ity o f Supply Kit 00:00: blood [place] 00 pressure Medical cuff (any Branch brand), take BP at home BID lisinopriL- 2019-04 Yes [id number] 1{tbl} Take 1 Univers hydrochloro 1-18 tablet by ity of thiazide 00:00: mouth [place] 10-12.5 mg 00 daily. Medical per tablet Branch Miscellaneo 2019-04 Yes [id number] I10 - U [employer] [facility] 18 Dispense ity o f Supply Kit 00:00: blood 00 pressure Medical cuff (any Branch brand), take BP at home BID Vital Signs Vital Name Observation Time Observation Value Comments Source Systolic blood 2022-07-13 13:17:00 139 mm[Hg] Univer sity of [facility] Diastolic blood 2022-07-13 13:17:00 72 mm[Hg] Unive rsity of [facility] Heart rate 2022-07-13 13:17:00 55 /min Universi ty [facility] Body temperature 2022-07-13 13:17:00 36.56 [facility] [place] [facility] Res[facility] rate 2022-07-13 13:17:00 18 /min [facility] Body height 2022-07-13 13:17:00 157.5 cm Universi ty [facility] Body weight 2022-07-13 13:17:00 86.138 kg Universi ty [facility] BMI 2022-07-13 13:17:00 34.73 kg/m2 Universi ty [facility] Systolic blood 2022-04-17 22:35:00 135 mm[Hg] Univer sity of [facility] Diastolic blood 2022-04-17 22:35:00 71 mm[Hg] Unive rsity of [facility] Heart rate 2022-04-17 22:34:00 62 /min Universi ty [facility] Body height 2022-04-17 22:34:00 157.5 cm Universi ty [facility] Body weight 2022-04-17 22:34:00 87.998 kg Universi ty [facility] BMI 2022-04-17 22:34:00 35.48 kg/m2 Universi ty [facility] [place] [facility] Oxygen saturation in 2022-04-17 22:34:00 97 /min University of Arterial blood by [facility] ankit Pulse oximetry Branch Systolic blood 2022-03-12 14:50:00 148 mm[Hg] Univer sity of pressure [place] [facility] Diastolic blood 2022-03-12 14:50:00 73 mm[Hg] Unive rsity of pressure [place] [facility] Heart rate 2022-03-12 14:50:00 60 /min Universi ty [facility] [place] [facility] Body temperature 2022-03-12 14:50:00 36.61 Mera Univ ersity [facility] [place] [facility] Respiratory rate 2022-03-12 14:50:00 18 /min Univ ersity [facility] [place] [facility] Body height 2022-03-12 14:50:00 157.5 cm Universi ty [facility] [place] [facility] Body weight 2022-03-12 14:50:00 88.542 kg [facility]i [facility] [place] [facility] BMI 2022-03-12 14:50:00 35.70 kg/m2 Universi ty [facility] [place] [facility] Oxygen saturation in 2022-03-12 14:50:00 98 /min University of Arterial blood by [facility] Pulse oximetry Branch Heart rate 2022-02-23 20:04:00 75 /min Universi ty [facility] [place] [facility] Respiratory rate 2022-02-23 20:04:00 15 /min Univ ersity [facility] [place] [facility] Oxygen saturation in 2022-02-23 20:04:00 95 /min University of Arterial blood by [facility] ankit Pulse oximetry Branch Systolic blood 2022-02-23 20:02:00 164 mm[Hg] Univer sity of pressure [place] [facility] Diastolic blood 2022-02-23 20:02:00 72 mm[Hg] Unive rsity of pressure [place] [facility] Body temperature 2022-02-23 17:59:00 37 Mera Univ ersity [facility] [place] [facility] BMI 2022-02-08 16:39:00 36.08 kg/m2 Universi ty [facility] [place] [facility] Body height 2022-02-08 16:39:00 157.5 cm Universi [facility] [place] [facility] Body weight 2022-02-08 16:39:00 89.5 kg Universi ty [facility] [place] [facility] Systolic blood 2022-02-23 18:50:00 170 mm[Hg] Univer sity of pressure [place] [facility] Diastolic blood 2022-02-23 18:50:00 73 mm[Hg] Unive rsity of pressure [place] [facility] Heart rate 2022-02-23 18:50:00 73 /min Universi ty [facility] [place] [facility] Respiratory rate 2022-02-23 18:50:00 16 /min Univ ersity [facility] [place] [facility] Oxygen saturation in 2022-02-23 18:50:00 96 /min University of Arterial blood by [place] [employer] ankit Pulse oximetry Branch Body temperature 2022-02-23 17:59:00 37 Mera Univ ersity [facility] [place] [facility] Body height 2022-02-08 16:39:00 157.5 cm Universi ty [facility] [place] [facility] Body weight 2022-02-08 16:39:00 89.5 kg [facility] [place] [facility] BMI 2022-02-08 16:39:00 36.08 kg/m2 [facility] [place] [facility] Systolic blood 2022-02-19 16:20:00 156 mm[Hg] Univer sity of pressure [place] [facility] Diastolic blood 2022-02-19 16:20:00 72 mm[Hg] Unive rsity of pressure [place] [facility] Heart rate 2022-02-19 16:18:00 52 /min Universi ty [facility] [place] [facility] Body temperature 2022-02-19 16:18:00 36.56 Mera Univ ersity [facility] [place] [facility] Respiratory rate 2022-02-19 16:18:00 18 /min Univ ersity [facility] [place] [facility] Body height 2022-02-19 16:18:00 157.5 cm Universi ty [facility] [place] [facility] Body weight 2022-02-19 16:18:00 88.542 kg [facility] [place] [facility] BMI 2022-02-19 16:18:00 35.70 kg/m2 [facility] [place] [facility] Oxygen saturation in 2022-02-19 16:18:00 98 /min University of Arterial blood by [place] [employer] ankit Pulse oximetry Branch Systolic blood 2022-02-06 21:35:00 171 mm[Hg] Univer sity of pressure [place] [facility] Diastolic blood 2022-02-06 21:35:00 82 mm[Hg] Unive rsity of pressure [place] [facility] Heart rate 2022-02-06 21:35:00 65 /min Universi ty [facility] [place] [facility] Respiratory rate 2022-02-06 21:34:00 16 /min Univ ersity [facility] [place] [facility] Body height 2022-02-06 21:34:00 157.5 cm Universi ty [facility] [place] [facility] Body weight 2022-02-06 21:34:00 89.54 kg [facility]i ty [facility] [place] [facility] BMI 2022-02-06 21:34:00 36.10 kg/m2 [facility] ty [facility] [place] [facility] Oxygen saturation in 2022-02-06 21:34:00 99 /min University of Arterial blood by [place] [employer] ankit Pulse oximetry Branch Systolic blood 2022-02-05 19:00:00 149 mm[Hg] Univer sity of pressure [place] [facility] Diastolic blood 2022-02-05 19:00:00 69 mm[Hg] Unive rsity of pressure [place] [facility] Heart rate 2022-02-05 19:00:00 59 /min Universi ty [facility] [place] [facility] Respiratory rate 2022-02-05 19:00:00 16 /min Univ ersity [facility] [place] [facility] Oxygen saturation in 2022-02-05 19:00:00 96 /min University of Arterial blood by [place] [employer] ankit Pulse oximetry Branch Body temperature 2022-02-05 18:28:00 36.83 Mera Univ ersity [facility] [place] [facility] Body height 2022-02-05 16:52:00 157.5 cm Universi ty [facility] [place] [facility] Body weight 2022-02-05 16:52:00 89.1 kg [facility] [place] [facility] BMI 2022-02-05 16:52:00 35.93 kg/m2 [facility] [place] [facility] Body height 2022-02-05 16:52:00 157.5 cm [facility] [place] [facility] Body weight 2022-02-05 16:52:00 89.1 kg [facility] [place] [facility] BMI 2022-02-05 16:52:00 35.93 kg/m2 [facility] [place] [facility] Systolic blood 2022-02-05 16:10:00 160 mm[Hg] Univer sity of pressure [place] [facility] Diastolic blood 2022-02-05 16:10:00 69 mm[Hg] Unive rsity of pressure [place] [facility] Heart rate 2022-02-05 16:10:00 64 /min Universi ty [facility] [place] [facility] Body temperature 2022-02-05 16:10:00 36.5 Mera Univ ersity of [place] [facility] Respiratory rate 2022-02-05 16:10:00 18 /min Univ ersity [facility] [place] [facility] Oxygen saturation in 2022-02-05 16:10:00 97 /min University of Arterial blood by [facility] Pulse oximetry Branch Systolic blood 2022-01-02 18:42:00 125 mm[Hg] Univer sity of pressure [place] [facility] Diastolic blood 2022-01-02 18:42:00 72 mm[Hg] Unive rsity of pressure [place] [facility] Heart rate 2022-01-02 18:42:00 62 /min Universi ty [facility] [place] [facility] Body temperature 2022-01-02 18:42:00 36.39 Mera Univ ersity [facility] [place] [facility] Respiratory rate 2022-01-02 18:42:00 18 /min Univ ersity [facility] [place] [facility] Body height 2022-01-02 18:42:00 157.5 cm [facility]i ty [facility] [place] [facility] Body weight 2022-01-02 18:42:00 87.907 kg [facility] [place] [facility] BMI 2022-01-02 18:42:00 35.45 kg/m2 [facility] [place] [facility] Oxygen saturation in 2022-01-02 18:42:00 96 /min University of Arterial blood by [facility] Pulse oximetry Branch Systolic blood 2021-12-28 19:50:00 134 mm[Hg] Univer sity of pressure [place] [facility] Diastolic blood 2021-12-28 19:50:00 74 mm[Hg] Unive rsity of pressure [place] [facility] Heart rate 2021-12-28 19:50:00 64 /min [facility]i ty [facility] [place] [facility] Body temperature 2021-12-28 19:50:00 36.22 Mera Univ ersity [facility] [place] [facility] Respiratory rate 2021-12-28 19:50:00 18 /min Univ ersity [facility] [place] [facility] Body height 2021-12-28 19:50:00 157.5 cm [facility] [place] [facility] Body weight 2021-12-28 19:50:00 89.086 kg Universi ty of [facility] BMI 2021-12-28 19:50:00 35.92 kg/m2 Univers ty [facility] Oxygen saturation in 2021-12-28 19:50:00 97 /min University Arterial blood by [facility] Pulse oximetry Branch Procedures Procedure Date / Time Performing Source Performed Clinician ASSIGNMENT OF BENEFITS 2022-07-13 Doctor Maiit y of 12:43:48 Unassigned, No [facility] Name Branch [place] TIME OR (NON-REPORTABLE) 2022-02-23 Myles Landa Uni versity of 17:07:00 [facility] [place] TIME [place] (NON-REPORTABLE) 2022-02-23 Myles Landa Uni versity of 17:07:00 [facility] CHOLECYSTECTOMY LAPAROSCOPY WITH 2022-02-23 Sasha Landa [place] of CHOLANGIOGRAM 15:22:00 [facility] [place] SURGERY - [facility] 2022-02-23 Doctor Zuñiga of 06:01:00 Unassigned, No [facility] [place] [facility] XR CHEST 2 VW 2022-02-06 Myles Landa [place] of 21:10:55 [facility] ESOPHAGOGASTRODUODENOSCOPY 2022-02-05 Myles Landa [facility] ersity of 17:51:00 [facility] EGD (ENDO) 2022-02-05 [facility] 17:34:02 O [facility] EGD (ENDO) 2022-02-05 [facility] of 17:34:02 O [facility] [place] SURGERY - [facility] 2022-02-05 [place] of 05:01:00 Unassigned, No [facility] Name Branch INSURANCE CORRESPONDENCE 2022-01-27 [facility] ity of 05:01:00 Unassigned, No [facility] Name Berthold REFERRAL- REQUEST/RESPONSE 2022-01-04 Doctor Jimeneze rsity of 05:01:00 Unassigned, No [facility] [place] [facility] DISCLOSURE AND CONSENT, MEDICAL 2022-01-02 [place] of AND SURGICAL PROCEDURES 05:01:00 Unassigned, No [facility] dicpr Name Branch CT ABDOMEN PELVIS W CONTRAST 2022-01-01 Myles Landa iversity of 13:15:24 [facility] INSURANCE CORRESPONDENCE 2021-12-31 [facility] ity of 05:01:00 Unassigned, No [facility] [place] [facility] Plan of Care Planned Activity Planned Date Details Comments Source Future Scheduled 2022-09-29 Screening for [facility] Test 19:07:30 malignant neoplasm of colon (procedure) [code = 963297708] Future Scheduled 2022-09-29 COVID-19 [facility]ACCINE [facility] 19:07:30 (#1) [code = COVID-19 VACCINE (#1)] Future Scheduled 2022-09-29 Scre[facility] for [facility] Test 19:07:30 malignant neoplasm of cervix (procedure) [code = 619179414] Future Scheduled 2022-09-29 BREAST CANCER [facility] Test 19:07:30 SCREENING [code = BREAST CANCER SCREENING] Future Scheduled 2022-09-29 Scre[facility] for [facility] Test 19:07:30 malignant neoplasm of colon (procedure) [code = 973451146] Future Scheduled 2022-09-29 [facility] for [facility] Test 19:07:30 malignant neoplasm of colon (procedure) [code = 855994562] Future Scheduled 2022-09-29 SHINGLES VACCINES [facility] 19:07:30 (1 of 2) [code = SHINGLES VACCINES (1 of 2)] Future Scheduled 2022-09-29 INFLUENZA VACCINE [facility] 19:07:30 [code = INFLUENZA VACCINE] Future Scheduled 2022-09-29 Screening for [facility] 19:07:30 malignant neoplasm of colon (procedure) [code = 202851995] Future Scheduled 2022-09-29 Screening for [facility] 19:07:30 malignant neoplasm of colon (procedure) [code = 505815014] Encounters Start End Encounter Admission Attending Care Care Encounter Source Date/Time Date/Time Type Type Clinicians Facility Department ID 2023-08-01 2023-08-01 Outpatient R [facility] [id number] Univers 13:00:00 13:00:00 JUNE cotton [facility] 2022-10-10 2022-10-10 Outpatient Boogie DUKE, [facility] [id number] Univers 00:00:00 00:00:00 JUNE cotton [facility] 2022-09-18 2022-09-18 Outpatient BETH MCCALL [id number] Beth 09:00:00 09:00:00 Seybol d 2022-07-13 2022-07-13 [facility] [id number] Univers 08:00:00 08:51:04 JUNE cotton [facility] 2022-07-13 2022-07-13 [facility] 1.2.840.114 [id number] Univers 08:00:00 08:51:04 Visit June DELEON 350.1.13.10 [place] [id number] [place] N[place] [address] [facility] 2022-07-13 2022-07-13 Orders Doctor ERIC 1.2.840.114 [id number] [facility] Univers 00:00:00 00:00:00 Only Unassigned, VIKY 350.1.13.10 ity of [place] [facility] 4.2.7.2.686 Karlos as [phone] [address] 2022-04-17 2022-04-17 Out[facility] [id number] Univers 16:30:00 16:41:32 MYLES cotton [facility] 2022-04-17 2022-04-17 [facility] 1.2.353.851 [id number] Univers 16:30:00 16:41:32 Visit Myles DELEON 350.1.13.10 i [place] [id number] [place]ical NAL [address] [facility] 2022-03-12 2022-03-12 Outpatient [facility] [id number] Univers 08:45:00 09:10:17 MYLES cotton [facility] 2022-03-12 2022-03-12 Office [facility] 1.2.706.947 [id number] Univers 08:45:00 09:10:17 Visit Myles DELEON 350.1.13.10 i [place] [phone] [place] dical NAL [address] [facility] 2022-02-23 2022-02-23 Outpatient [facility] MIRNA 67255 [id number] Univers 08:00:00 14:21:00 MYLES cotton [facility] 2022-02-23 2022-02-23 [facility] 1.2.840.114 [id number] Univers 08:00:00 14:21:00 Encounter Myles DELEON 350.1.13.10 ity of [facility] [place]ICAL [id number] [facility] [address] 2022-02-23 2022-02-23 Surgery [facility] 1.2.824.252 [id number] 7317 Univers 09:00:00 12:51:00 Myles TAYLORDORIS 350.1.13.10 i ty of [facility] 4.2.[place] [id number] [facility] [address] 2022-02-19 2022-02-19 [facility] [id number] Univers 09:30:00 10:41:04 MYLES cotton [facility] 2022-02-19 2022-02-19 Office [facility] 1.2.057.595 [id number] Univers 09:30:00 10:41:04 Visit Myles TAYLORDORIS 350.1.13.10 i ty [facility] 4.[place] [phone] [place] dic[address] 2022-02-06 2022-02-06 Outpatient [facility] [id number] Univers 15:21:07 23:59:00 MYLES cotton [facility] 2022-02-06 2022-02-06 [facility] 1.2.840.114 [id number] Univers 15:21:07 23:59:00 Encounter Myles TAYLORDORIS 350.1.13.10 ity of [facility] [place].7.2.[place] [id number] [facility] [address] 2022-02-06 2022-02-06 Office [facility] 1.2.589.699 [id number] Univers 16:15:00 16:55:22 Visit Myles DELEON 350.1.13.10 i [place] [id number] [place] dical NAL [address] [facility] 2022-02-06 2022-02-06 Telephone Cordell ERIC 1.2.840.114 [id number] Univers 00:00:00 00:00:00 Myles SALMON 350.1.13.10 it y of HOSPITAL 4.2.7.2.686 [place] as [phone] [facility] [address] 2022-02-05 2022-02-05 Outpatient R [facility] MIRNA 79614 [id number] Univers 11:03:00 14:10:00 MYLES jaimeeflavia of [facility] 2022-02-05 2022-02-05 [facility] 1.2.840.114 [id number] Univers 11:03:00 14:10:00 Encounter Myles DELEON 350.1.13.10 it[place] [id number] [facility] [address] 2022-02-05 2022-02-05 Surgery [facility] 1.2.644.721 [id number] 5704 Univers 12:13:00 12:49:00 Myles DELEON 350.1.13.10 i [place] [id number] [facility] [address] 2022-02-05 2022-02-05 Orders Doctor ERIC 1.2.840.114 [id number] Univers 00:00:00 00:00:00 Only Unassigned, VIKY 350.1.13.10 ity of [place] [facility] 4.2.7.2.686 Karlos as [phone] [facility] [address] 2022-02-01 2022-02-01 BRIGITTE Haddad 1.2.840.114 [id number] Univers 00:00:00 00:00:00 Rupal Y 350.1.13.10 it y of [facility] 4.2.7.2.686 Karlos as BANK [phone] [facility] BLDG. [address] 2022-01-27 2022-01-27 Orders Doctor ERIC 1.2.840.114 [id number] Univers 00:00:00 00:00:00 Only Unassigned, VIKY 350.1.13.10 ity of [place] [facility] 4.2.7.2.686 [place] as [phone] [address] 2022-01-08 2022-01-08 Telephone [facility] 1.2.840.114 [id number] Univers 00:00:00 00:00:00 Myles DELEON 350.1.13.10 i [place] [phone] Va dical NAL [address] [place] [address] 2022-01-04 2022-01-04 Orders Doctor REYES 1.2.840.114 [id number] Univers 00:00:00 00:00:00 Only Unassigned, VIKY 350.1.13.10 ity of [place] [facility]OS[facility] 4.2.7.2.686 Karols as [phone] [address] 2022-01-03 2022-01-03 Prep For [facility] 1.2.840.114 [id number] Univers 00:00:00 00:00:00 Surgery Myles DELEON 350.1.13.10 i [place] [id number] [place] dical NAL [address] [place] [address] 2022-01-02 2022-01-02 Outpatient [facility] [id number] Univers 13:45:00 14:46:12 MYLES cotton of [facility] 2022-01-02 2022-01-02 Office [facility] 1.2.835.989 [id number] Univers 13:45:00 14:46:12 Visit Myles DELEON 350.1.13.10 i [place] [id number] [place] dical NAL [address] [place] [address] 2022-01-02 2022-01-02 Orders Doctor REYES 1.2.840.114 [id number] Univers 00:00:00 00:00:00 Only Unassigned, VIKY 350.1.13.10 ity of [place] [facility]OS[facility] 4.2.7.2.686 Karlos as [phone] [address] 2022-01-01 2022-01-01 Outpatient [facility] [id number] Univers 07:39:21 23:59:00 MYLES flavia [facility] 2022-01-01 2022-01-01 Hospital [facility] 1.2.840.114 [id number] Univers 07:39:21 23:59:00 Encounter Myles DELEON 350.1.13.10 [place]2.[place] [id number] [facility] [address] 2021-12-31 2021-12-31 Orders Doctor ERIC 1.2.840.114 [id number] Univers 00:00:00 00:00:00 Only Unassigned, VIKY 350.1.13.10 ity of [place] [facility]OS[facility] 4.2.7.2.686 Karl[place] as [phone] [address] 2021-12-29 2021-12-29 Telephone [facility] 1.2.840.114 [id number] Univers 00:00:00 00:00:00 Myles DELEON 350.1.13.10 i [place] [phone] Va dical NAL [address] [place] [address] 2021-12-28 2021-12-28 Outpatient [facility] [id number] Univers 15:00:00 15:39:13 MYLES cotton [facility] 2021-12-28 2021-12-28 Office [facility] 1.2.693.247 [id number] Univers 15:00:00 15:39:13 Visit Myles DELEON 350.1.13.10 i [place] [id number] Va dical NAL [address] [place] [address] 2021-12-25 2021-12-25 Emergency X MORRICAL, [facility] ERT [id number] Univers 11:26:00 15:08:00 COLTON cotton [facility] 2021-12-25 2021-12-25 Emergency Morrical, [facility] 1.2.840.114 [id number] Univers 11:26:00 15:08:00 Colton Nahid DELEON 350.1.13.10 ity of [place] 4.2.7.2.686 [facility] [phone] [address] 2021-10-13 2021-10-13 Emergency X WEISS, [facility] ERT [id number] Univers 15:44:00 18:26:00 RENAY ity [facility] 2021-10-13 2021-10-13 [facility] 1.2.840.114 [id number] Univers 15:44:00 18:26:00 Renay PANCHO 350.1.13.10 i [place] 4.2.7.2.686 [facility] [phone] [address] 2021-10-13 2021-10-13 Orders Doctor ERIC 1.2.840.114 [id number] Univers 00:00:00 00:00:00 Only Unassigned, VIKY 350.1.13.10 ity of [place] [facility] 4.2.7.2.686 Karlos as [phone] [address] 2021-09-01 2021-09-01 Orders Doctor ERIC 1.2.840.114 [id number] Univers 00:00:00 00:00:00 Only Unassigned, VIKY 350.1.13.10 ity of [place] [facility]OS[facility] 4.2.7.2.686 Karlos as [phone] [address] 2021-08-29 2021-08-29 [facility] 1.2.648.187 [id number] Univers 13:15:00 14:19:46 Visit Karissa DELEON 350.1.13.10 i ty of [place] 4.2.7.2.686 [facility] PROFESSIO [phone] Va dical [facility] [address] [facility] 2021-08-29 2021-08-29 Outpatient R XANDER [facility] [id number] Univers 13:15:00 14:19:46 KARISSA hermosilloy [facility] 2021-08-29 2021-08-29 Outpatient R XANDER, [facility] [id number] Univers 13:15:00 13:15:00 KARISSADEDRA cotton [facility] 2021-08-29 2021-08-29 Telephone Adum, [facility] 1.2.629.496 [id number] Univers 00:00:00 00:00:00 June DELEON 350.1.13.10 ity of [facility] 4.[place].2.[place] [phone] [place] [address] 2021-08-28 2021-08-28 Telephone Adum, [facility] 1.2.643.367 [id number] Univers 00:00:00 00:00:00 June DELEON 350.1.13.10 ity of [facility] 4[place] [phone] Va dical NAL [address] [place] [address] 2021-08-23 2021-08-23 Orders Doctor ERIC 1.2.840.114 [id number] Univers 00:00:00 00:00:00 Only Unassigned, VIKY 350.1.13.10 ity of [place] [facility] 4.2.7.2.686 [place] as [phone] [address] 2021-08-17 2021-08-17 Telephone Ad, [facility] 1.2.126.348 [id number] Univers 00:00:00 00:00:00 June DELEON 350.1.13.10 ity of [facility] 4.2.7.2.[place] [phone] [place] [address] 2021-08-16 2021-08-16 Outpatient EL ADUM, [facility] [id number] [facility] 12:00:00 12:00:00 JUNE [facility] 2021-08-10 2021-08-10 Case Adum, [facility] 1.2.840.114 [id number] Univers 00:00:00 00:00:00 Management June DELEON 350.1.13.10 ity of [facility] 4.2.7.2.[place] [phone] [place] dical NAL 134 [facility] 2021-08-10 2021-08-10 [facility] 1.2.349.532 [id number] Univers 00:00:00 00:00:00 June DELEON 350.1.13.10 ity of [facility] 4.2.7.2.[place] [phone] Va dical NAL 134 [facility] 2021-08-07 2021-08-07 Office DelisaBRIGITTE 1..840.114 [id number] Univers 13:45:00 14:40:52 Visit Rupal Abrams 350.1.13.10 it y of [facility] 4.2.7.2.686 Karlos as BANK [phone] [facility] BLDG. [address] 2021-08-07 2021-08-07 Outpatient [facility] [id number] Univers 13:45:00 14:40:52 RUPAL itflavia [facility] 2021-08-07 2021-08-07 Outpatient [facility] [id number] Univers 13:45:00 13:45:00 RUPAL ity [facility] 2021-07-26 2021-07-26 Outpatient R [facility] [id number] Univers 15:35:39 23:59:00 JUNE itflavia [facility] 2021-07-26 2021-07-26 Outpatient R [facility] [id number] Univers 15:35:39 23:59:00 JUNE itflavia [facility] 2021-07-26 2021-07-26 [facility] 1.2.840.114 [id number] Univers 15:20:00 23:59:00 Encounter June DELEON 350.1.13.10 [place] [id number] [facility] [address] 2021-07-11 2021-07-11 Outpatient R [facility] [id number] Univers 08:00:00 09:00:58 JUNE itflavia [facility] 2021-07-112021-07-11 Office Adum, [facility] 1.2.840.114 [id number] Univers 08:00:00 09:00:58 Visit June DELEON 350.1.13.10 it[place] of [place] [phone] Va dical NAL 134 [facility] 2021-07-11 2021-07-11 Letter Adum, [facility] 1.2.840.114 [id number] Univers 00:00:00 00:00:00 (Out) June DELEON 350.1.13.10 it[place] [id number] [address] 2021-07-07 2021-07-07 Outpatient R RADIOLOGY [facility] [id number] Univers 18:05:23 23:59:00 ity of [facility] 2021-07-07 2021-07-07 Hospital Radiology [facility] 1.2.840.114 [id number] Univers 18:05:23 23:59:00 Encounter PANCHO 350.1.13.10 [place] [id number] [facility] [address] 2021-07-07 2021-07-07 Orders Doctor ERIC 1.2.840.114 [id number] Univers 00:00:00 00:00:00 Only Unassigned, VIKY 350.1.13.10 ity of [place] [facility] 4.2.7.2.686 Karlos as [id number] [facility] [address] 2021-01-25 2021-01-25 Outpatient R AD, [facility] [id number] Univers 15:30:00 15:30:00 JUNE ity [facility] 2020-12-27 2020-12-27 Outpatient R ADUM, [facility] [id number] Univers 15:00:00 15:00:00 JUNE ity [facility] 2020-10-18 2020-10-18 Outpatient R [facility] [id number] Univers 13:00:00 13:00:00 ity of [facility] 2020-10-05 2020-10-05 Urgent Provider, [facility] 1.2.840.114 [id number] Univers 11:39:35 12:54:45 Care Meenu Aguilera 350.1.13.10 ity of [place] 4.2.7.2.686 Karlos as Professio [phone] [address] Office [address] 2020-10-05 2020-10-05 Outpatient R [facility] [id number] Univers 12:00:00 12:00:00 ity of [facility] 2020-10-05 2020-10-05 Telephone [facility] 1.2.840.114 [id number] Univers 00:00:00 00:00:00 Ebenezer Deleon 350.1.13.10 i ty of [place] [id number] [address] 2020-08-25 2020-08-25 Telephone [facility] 1.2.840.114 [id number] Univers 00:00:00 00:00:00 Ebenezer Deleon 350.1.13.10 i ty of [place] [phone] [address] 2020-08-24 2020-08-24 Outpatient R [facility] [id number] Univers 08:00:00 08:00:00 ity [facility] 2020-08-24 2020-08-24 Hot Strip Finisher 2, Adc Lab [facility] 1.2.840.114 [id number] Univers 07:38:52 07:53:52 Visit Ebenezer Norris 350.1.13.10 ity of [place] [id number] [facility] 353 [facility] 2020-06-28 2020-06-28 Patient Arnav [facility] 1.2.840.114 [id number] Univers 00:00:00 00:00:00 Outreach Brooks DAVEY 350.1.13.10 i ty of [place].2.[place] [id number] Va dical [address] [place] [address] 2020-06-03 2020-06-03 [facility] [id number] Univers 14:40:00 14:40:00 EBENEZER cotton [facility] 2020-03-09 2020-03-09 [facility] [id number] Univers 10:00:00 10:00:00 EBENEZER cotton [facility] 2020-03-03 2020-03-03 Out[facility] [id number] Univers 10:00:00 10:00:00 EBENEZER flavia [facility] 2020-03-02 2020-03-02 [facility] 1.2.840.114 [id number] Univers 15:33:45 16:21:04 Visit Ebenezer Deleon 350.1.13.10 i ty [facility] [place]2.7.2.[place] [phone] Va dical [address] 2020-03-02 2020-03-02 Outpatient [facility] [id number] Univers 15:00:00 15:00:00 EBENEZER cotton [facility] 2020-02-11 2020-02-11 Outpatient [facility] [id number] Univers 15:00:00 15:00:00 MYLES cotton [facility] 2020-01-20 2020-01-21 Office [facility] 1.2.840.114 [id number] Univers 15:06:36 12:37:09 Visit June Deleon 350.1.13.10 ity [facility] [place]7.2.[place] [phone] [place] dical [facility] hospital 134 [facility] 2020-01-20 2020-01-21 Office [facility] 1.2.840.114 [id number] 15:06:36 12:37:09 Visit June Deleon 350.1.13.10 [place] 4.2.7.2.686 Professio [phone] [address] 2020-01-20 2020-01-20 Outpatient R [facility] [id number] Univers 15:30:00 15:30:00 JUNE ity of [facility] 2020-01-20 2020-01-20 Orders Doctor ERIC 1.2.840.114 [id number] Univers 00:00:00 00:00:00 Only Unassigned, VIKY 350.1.13.10 ity of [place] [facility] 4.2.7.2.686 Karlos as [phone] [address] 2019-11-22 2019-11-22 Refill [facility] 1.2.840.114 [id number] Univers 00:00:00 00:00:00 Meenu A Health 350.1.13.10 i ty of [place] 4.2.7.2.686 [place]os as Professio [phone] [address] Office [facility] 2019-10-30 2019-10-30 Telephone [facility] 1.2.597.848 [id number] Univers 00:00:00 00:00:00 Meenu A Health 350.1.13.10 i ty of [place] 4.2.7.2.686 [place]os as Professio [phone] [address] Office [facility] 2019-10-30 2019-10-30 Letter Lab, Pcp [facility] 1.2.840.114 [id number] Univers 00:00:00 00:00:00 (Out) [facility] 350.1.13.10 it y of [place] 4.2.7.2.686 Karlos as Professio [phone] [address] Office [facility] 2019-10-29 2019-10-29 Urgent Pob1, Acute Care Clinic [facility] 1. 2.840.114 [id number] Univers 15:02:08 16:04:22 Care AneCarmen bermudez Health 350.1.13.10 ity of [place] 4.2.7.2.686 Karlos as Professio [phone] [address] Office [facility] 2019-10-29 2019-10-29 Outpatient R [facility] [id number] Univers 15:00:00 15:00:00 ity of [facility] 2019-10-29 2019-10-29 Outpatient R VALERIE [facility] [id number] Univers 07:20:00 07:20:00 CARMEN cotton of [facility] 2019-10-29 2019-10-29 Letter Lab, Pcp [facility] 1.2.840.114 [id number] Univers 00:00:00 00:00:00 (Out) [employer] 350.1.13.10 it y of [place] 4.2.7.2.686 Karlos as [place] [phone] Va dical [facility] [address] Results This patient has no known results.
[2022-10-30] MEDS ORDERED: KETOROLAC 30 MG/ML INJ ONE (05:22)
[2022-10-30 05:35] LABS: Absolute Lymphocytes (CBC) 2.3 K/uL (0.7-4.9); Hematocrit 40.2 % (36.0-45.0); Lymphocytes % 33.8 % (15.3-44.8); MCV 96.8 fL (80-100); MPV 10.4 fL (7.6-11.3); RBC Red Blood Cell Count 4.15 M/uL (3.86-4.86)
[2022-10-30 05:40] LABS: Calcium Oxalate Crystals- Ur Moderate /HPF (None Seen); Renal Epithelial <5 /HPF (None Seen); Specific Gravity 1.022 (1.005-1.030); Urine Bacteria None Seen /HPF (<20); Urine Bilirubin NEGATIVE (Negative); Urine Blood Negative (Negative); Urine Clarity Extremely Turbid (Clear); Urine Color Light-Yellow (Yellow); Urine Glucose NEGATIVE (Negative); Urine Mucus 1+ /HPF (None Seen); Urine Protein 1+ (Negative); Urine RBC <5 /HPF (None Seen); Urine Urobilinogen Normal (Normal); Urine WBC Clump Rare /HPF (None Seen); Urine pH 5.5 (5.0-7.0)
[2022-10-30 05:44] LABS: Albumin 3.9 g/dL (3.4-5.0); Bilirubin Total 0.3 mg/dL (0.2-1.0); Potassium 3.8 mEq/L (3.5-5.1); Protein, Total 7.2 g/dL (6.4-8.2)
--- NOTE | 2022-10-30 06:08 | EDPHYS ---
Physician Documentation [facility] Name: Pepper Allen Age: 57 yrs Sex: Female : 1965 Arrival Date: 10/30/2022 Time: 04:18 Bed 5 Private MD: ED Physician Olegario Malone HPI: 10/30 04:48 This 57 yrs old Female presents to ER via Ambulatory with complaints of Low Back Pain. sp3 04:48 57-year-old female with no past medical history presents with right sided flank pain sp3 and low back pain for 1 day. Patient's pain started yesterday insidiously without any provocation, trauma or event. Pain is described as deep and cramping in nature and is waxing and waning. She denies any fever, headache, URI symptoms, neck pain, chest pain, upper back pain, shortness of breath, anterior abdominal pain, nausea, vomiting, diarrhea, syncope, focal neurodeficit, or any other signs or symptoms on ROS at this time.. Historical: - Allergies: 04:28 No Known Allergies; as6 - PMHx: 04:28 None; as6 - PSHx: 04:28 section; Cholecystectomy; as6 - Immunization history:: Client reports having NOT received the Covid vaccine. - Social history:: Smoking status: Patient denies any tobacco usage or history of. ROS: 04:49 Constitutional: Negative for fever, chills, and weight loss, Eyes: Negative for injury, sp3 pain, redness, and discharge, ENT: Negative for injury, pain, and discharge, Neck: Negative for injury, pain, and swelling, Cardiovascular: Negative for chest pain, palpitations, and edema, Respiratory: Negative for shortness of breath, cough, wheezing, and pleuritic chest pain, MS/Extremity: Negative for injury and deformity, Skin: Negative for injury, rash, and discoloration, Neuro: Negative for headache, weakness, numbness, tingling, and seizure, Psych: Negative for depression, anxiety, suicide ideation, homicidal ideation, and hallucinations, Allergy/Immunology: Negative for hives, rash, and allergies, Endocrine: Negative for neck swelling, polydipsia, polyuria, polyphagia, and marked weight changes. 04:49 All other systems are negative. Exam: 04:49 Constitutional: This is a well developed, well nourished patient who is awake, alert, sp3 and in no acute distress. Head/Face: Normocephalic, atraumatic. Eyes: Pupils equal round and reactive to light, extra-ocular motions intact. Lids and lashes normal. Conjunctiva and sclera are non-icteric and not injected. Cornea within normal limits. Periorbital areas with no swelling, redness, or edema. ENT: Nares patent. No nasal discharge, no septal abnormalities noted. External auditory canals are clear. Oropharynx with no redness, swelling, or masses, exudates, or evidence of obstruction, uvula midline. Mucous membranes moist. Neck: Trachea midline, no thyromegaly or masses palpated, and no cervical lymphadenopathy. Supple, full range of motion without nuchal rigidity, or vertebral point tenderness. No Meningismus. Chest/axilla: Normal chest wall appearance and motion. Nontender with no deformity. No lesions are appreciated. Cardiovascular: Regular rate and rhythm with a normal S1 and S2. No gallops, murmurs, or rubs. Normal PMI, no JVD. No pulse deficits. Respiratory: Lungs have equal breath sounds bilaterally, clear to auscultation and percussion. No rales, rhonchi or wheezes noted. No increased work of breathing, no retractions or nasal flaring. Back: No spinal tenderness. No costovertebral tenderness. Full range of motion. Skin: Warm, dry with normal turgor. Normal color with no rashes, no lesions, and no evidence of cellulitis. MS/ Extremity: Pulses equal, no cyanosis. Neurovascular intact. Full, normal range of motion. Neuro: Awake and alert, GCS 15, oriented to person, place, time, and situation. Cranial nerves II-XII grossly intact. Motor strength 5/5 in all extremities. Sensory grossly intact. Cerebellar exam normal. Normal gait. Psych: Awake, alert, with orientation to person, place and time. Behavior, mood, and affect are within normal limits. 04:49 Abdomen/GI: No anterior abdominal pain. Right CVA tenderness is noted on percussion.. Vital Signs: 04:26 BP 161 / 71; Pulse 67; Resp 18 S; Temp 97.9(O); Pulse Ox 100% on R/A; Weight 77.56 kg as6 (R); Height 5 ft. 2 in. (R); Pain 7/10; 07:10 BP 126 / 67; Pulse 66; Resp 17 S; Pulse Ox 100% on R/A; kc6 04:26 Body Mass Index 31.28 (77.56 kg, 157.48 cm) as6 04:26 Pain Scale: Adult as6 MDM: 04:48 Patient medically screened. sp3 04:50 Data reviewed: vital signs, nurses notes, lab test result(s), radiologic studies. ED sp3 course: 57-year-old female with right flank pain and low back pain. Differential diagnosis includes kidney stone, UTI, pyelonephritis, adhesions, functional abdominal pain, MSK pain, among others. I am not highly suspicious for acute coronary syndrome, AAA, PE, abdominal ischemia, bowel obstruction, [employer] pathology, or any other critical pathology including sepsis at this time. Work-up will include CT scan of the abdomen pelvis kidney stone protocol, laboratory values, urine analysis and pain medication as needed.. 06:06 ED course: Discussed with patient her findings. Patient has a urinary tract infection sp3 and her urine also had calcium oxalate crystals in it which could be indicative of a recently passed stone. CT scan demonstrates no ureteral calculi or any other abnormality in the genitourinary system. There is a 5 mm incidental finding in the left lower lobe of the lung in the form of a nodule that will need follow-up in 6 to 12 months. I have discussed all of these findings extensively with patient including need for follow-up. She is also getting a copy of her scan report as well as images prior to discharge. We will administer Levaquin 500 mg IV and then discharge patient home on p.o. Levaquin with follow-up to PCP.. 10/30 04:33 Order name: CBC with Diff; Complete Time: 05:44 sp3 10/30 04:33 Order name: CMP; Complete Time: 05:44 sp3 10/30 04:33 Order name: Lipase; Complete Time: 05:44 sp3 10/30 04:33 Order name: Urinalysis w/ reflexes; Complete Time: 05:44 sp3 10/30 05:45 Order name: Urine Culture EDMS 10/30 04:33 Order name: CT Abd/Pelvis - Without Contrast sp3 10/30 04:33 Order name: IV Saline Lock; Complete Time: 05:13 sp3 10/30 04:33 Order name: Labs collected and sent; Complete Time: 05:13 sp3 Administered Medications: 05:16 Drug: TORadol - Ketorolac IVP 15 mg Route: IVP; Site: right antecubital; jb4 07:11 Follow up: Response: No adverse reaction kc6 06:19 Drug: levofloxacin IVPB 500 mg Volume: 100 ml; Route: IVPB; Infused Over: 60 mins; jb4 Site: right antecubital; 07:19 Follow up: Response: No adverse reaction; IV Status: Completed infusion kc6 Disposition Summary: 10/30/22 06:08 Discharge Ordered Location: Home sp3 Condition: Stable sp3 Diagnosis - Urinary tract infection, calcium oxalate crystals in urine, incidental pulmonary sp3 nodule Followup: sp3 - With: Private Physician - When: Upon discharge from the Emergency Department - Reason: Continuance of care Discharge Instructions: - Discharge Summary Sheet sp3 - Urinary Tract Infection, Adult sp3 Forms: - Medication Reconciliation Form sp3 - Thank You Letter sp3 - Antibiotic Education sp3 - Prescription Opioid Use sp3 - Patient Portal Instructions sp3 Prescriptions: - Diclofenac Sodium 75 mg Oral Tablet Sustained Release - take 1 tablet by ORAL route 2 times per day; 30 tablet; Refills: 0, Product sp3 Selection Permitted - levofloxacin 500 mg Oral Tablet - take 1 tablet by ORAL route once daily for 7 days; 7 tablet; Refills: 0, sp3 Product Selection Permitted Signatures: Dispatcher [employer] Nakul Alanis RN RN jb4 Olegario Malone MD MD sp3 Saqib Verma RN RN as6 Ximena Forte RN kc6 Corrections: (The following items were deleted from the chart) 05:18 04:34 Test, Urine+[id number] ordered. EDMS EDMS
--- NOTE | 2022-10-30 06:08 | ER ---
Nurse's Notes [facility] Name: Pepper Allen Age: 57 yrs Sex: Female : 1965 Arrival Date: 10/30/2022 Time: 04:18 Bed 5 Private MD: Diagnosis: Urinary tract infection, calcium oxalate crystals in urine, incidental pulmonary nodule Presentation: 10/30 04:26 Chief complaint: Patient states: "I think I'm getting a kidney infection" pt c/o right as6 flank pain. Coronavirus screen: At this time, the client does not indicate any symptoms associated with coronavirus-19. Ebola Screen: No symptoms or risks identified at this time. Initial Sepsis Screen: Does the patient meet any 2 criteria? No. Patient's initial sepsis screen is negative. Does the patient have a suspected source of infection? No. Patient's initial sepsis screen is negative. Risk Assessment: Do you want to hurt yourself or someone else? Patient reports no desire to harm self or others. Onset of symptoms was October 29, 2022. 04:26 Method Of Arrival: Ambulatory as6 04:26 Acuity: MARLENE 3 as6 Triage Assessment: 07:19 General: Appears. kc6 Historical: - Allergies: 04:28 No Known Allergies; as6 - PMHx: 04:28 None; as6 - PSHx: 04:28 section; Cholecystectomy; as6 - Immunization history:: Client reports having NOT received the Covid vaccine. - Social history:: Smoking status: Patient denies any tobacco usage or history of. Screenin:00 [facility] ED Fall Risk Assessment (Adult) History of falling in the last 3 months, kc6 including since admission No falls in past 3 months (0 pts) Confusion or Disorientation No (0 pts) Intoxicated or Sedated No (0 pts) Impaired Gait No (0 pts) Mobility Assist Device Used No (0 pt) Altered Elimination No (0 pt) Score/Fall Risk Level 0 - 2 = Low Risk Oriented to surroundings, Maintained a safe environment, Educated pt \\T\\ family on fall prevention, incl call for assistance when getting out of bed, Assessed \\T\\ reinforced patient's understanding of fall precautions, Hourly rounding (assess needs \\T\\ fall precautionary measures) done. Abuse screen: Denies threats or abuse. Denies injuries from another. Nutritional screening: No deficits noted. Tuberculosis screening: No symptoms or risk factors identified. Assessment: 07:00 Reassessment: Patient appears in no apparent distress at this time. Patient and/or kc6 family updated on plan of care and expected duration. Pain level reassessed. Patient is alert, oriented x 3, equal unlabored respirations, skin warm/dry/pink. per CLAIR Dye, discharge pending levofloxacin completion. Vital Signs: 04:26 BP 161 / 71; Pulse 67; Resp 18 S; Temp 97.9(O); Pulse Ox 100% on R/A; Weight 77.56 kg as6 (R); Height 5 ft. 2 in. (R); Pain 7/10; 07:10 BP 126 / 67; Pulse 66; Resp 17 S; Pulse Ox 100% on R/A; kc6 04:26 Body Mass Index 31.28 (77.56 kg, 157.48 cm) as6 04:26 Pain Scale: Adult as6 ED Course: 04:20 Patient arrived in ED. ag3 04:28 Triage completed. as6 04:29 Arm band placed on. as6 04:32 Olegario Malone MD is Attending Physician. sp3 05:00 Nakul Robbins, CLAIR is Primary Nurse. jb4 05:13 CT Abd/Pelvis - Without Contrast In Process Unspecified. EDMS 07:00 Patient has correct armband on for positive identification. Placed in gown. Bed in low kc6 position. Call light in reach. Side rails up X 1. Report received from CLAIR Dye. 07:19 No provider procedures requiring assistance completed. IV discontinued, intact, kc6 bleeding controlled, No redness/swelling at site. Pressure dressing applied. Administered Medications: 05:16 Drug: TORadol - Ketorolac IVP 15 mg Route: IVP; Site: right antecubital; jb4 07:11 Follow up: Response: No adverse reaction kc6 06:19 Drug: levofloxacin IVPB 500 mg Volume: 100 ml; Route: IVPB; Infused Over: 60 mins; jb4 Site: right antecubital; 07:19 Follow up: Response: No adverse reaction; IV Status: Completed infusion kc6 Medication: 07:20 VIS not applicable for this client. kc6 Outcome: 06:08 Discharge ordered by . sp3 07:20 Discharged to home ambulatory. kc6 07:20 Condition: improved 07:20 Discharge instructions given to patient, Instructed on discharge instructions, follow up and referral plans. medication usage, Demonstrated understanding of instructions, follow-up care, medications, Prescriptions given X 2. 07:20 Patient left the ED. kc6 Signatures: Dispatcher [employer] EDMS Nakul Robbins, RN RN jb4 Maegan [email or web address] Olegario Malone MD MD sp3 Saqib Verma RN RN as6 Ximena Forte RN RN kc6
[2022-10-30] MEDS ORDERED: Levofloxacin500mg IV 500 MG/100 ML BAG IV ONE (06:23)
[2022-10-30 07:50] VITALS: TEMP 97.9; O2SAT 100
[2022-10-30 07:51] VITALS: BP 126/67
--- NOTE | 2022-10-30 16:57 | RAD REPORT ---
EXAM DESCRIPTION: CT - Abdomen Pelvis Wo Contrast - 10/30/2022 6:41 am CLINICAL HISTORY: 57 years Female RIGHT FLANK PAIN COMPARISON: None TECHNIQUE: CT of the abdomen and pelvis without contrast. All CT scans at this facility use dose modulation, iterative reconstruction, and/or weight based dosi ng when appropriate to reduce radiation dose to as low as reasonably achievable. FINDINGS: Lower thorax: 5 mm left lower lobe pulmonary nodule (axial image 11) Minimal left basilar scarring. Abdomen: Stomach: Within normal limits Liver: No focal lesions. No intrahepatic ductal distention. Gallbladder: Surgically absent. Pancreas: Within normal limits Spleen: Within normal limits Right kidney: No hydronephrosis. No renal or ureteral calculi. Left kidney: No hydronephrosis. No renal or ureteral calculi. Adrenal glands: Within normal limits Vascular structures: Mild atherosclerosis of the abdominal aorta. Lymph nodes: No lymphadenopathy by size criteria Pelvis: Small bowel: No significant distention. Appendix: Within normal limits Colon: No distention or acute pericolonic edema. Peritoneum: No free intraperitoneal fluid or air. Bones: No acute bone findings. Bladder: Under distended, limiting evaluation. Reproductive organs: Small volume of fluid and gas in the endometrial canal. Defect along the anterio r uterus, likely secondary to section. Note that evaluation of the bowel and solid organs is somewhat limited due to lack of intravenous and oral contrast. IMPRESSION: 1. No urinary tract calculi. No hydronephrosis. 2. Small volume of fluid and gas in the endometrial canal, can be seen in setting of recent gynecol ogic intervention. Defect along the anterior uterus, likely secondary to section. Correlate with surgical history. 3. Left lower lobe pulmonary nodule measuring 5 mm. If patient is low risk for malignancy, no rou sultana follow-up imaging is recommended; if patient is high risk for malignancy, a non-contrast Chest C T at 12 months is optional. If performed and the nodule is stable at 12 months, no further follow-up is recommended. Electronically signed by: Leonel Torres MD 10/30/2022 5:57 AM CDT Due to temporary technical issues with the PACS/Fluency reporting system, reports are being signed by the in house radiologists without review as a courtesy to insure prompt reporting. The interpreting radiologist is fully responsible for the content of the report.
== END 2022-10-30 07:20 | disposition home or self-care (01) ==
LOC: ER 04:18
DX: N39.0 Urinary tract infection, site not specified (principal); N20.9 Urinary calculus, unspecified; R91.1 Solitary pulmonary nodule
CPT/HCPCS: 36415; 74176; 80053; 81001; 83690; 85025; 87086; 87088